=== PATIENT | male | born 1965 | race Caucasian/White ===

== ENCOUNTER 2020-09-19 12:49 | Emergency (ER) | payer OTHER, SELFPAY ==
--- NOTE | ~2020-09-19 | US_ITS ---
EXAMINATION: US VENOUS WITH DOPPLER LOWER EXTREMITY, RIGHT CLINICAL INFORMATION: Swelling and pain, evaluate for DVT. COMPARISON: None TECHNIQUE: Ultrasound of the deep veins is performed from the hip to the calf with compression sonography and color and pulse Doppler assessment. Spectral analysis with color-flow imaging is performed. FINDINGS: There is normal venous compression and respiratory variation and augmented flow. The visualized common femoral vein, superficial femoral vein, profunda femoral vein, popliteal vein, and the trifurcation region shows no evidence of deep venous thrombosis. There is no significant popliteal fossa cyst. If the patient's symptoms persist, follow up ultrasound in 5 days 7 days might be of value to exclude proximal propagation from a non-visualized calf vein. US/US venous duplex LE RT IMPRESSION: No DVT demonstrated in the right lower extremity.
[2020-09-19 12:53] VITALS: BP 166/83; PULSE 93; RESP 18; TEMP 37.1; O2SAT 98; BMI 41.5
[2020-09-19 15:23] LABS: MANUAL DIFF FLAG NO
[2020-09-19 15:26] LABS: Basophils Absolute Auto 0.1 X10*3/uL (0.0-0.2); Basophils Percent Auto 0.7 % (0-2); Eosinophils Absolute Auto 0.4 X10*3/uL (0.0-0.4); Eosinophils Percent Auto 4.6 % (0-4); Hematocrit 41.4 % (42-52); Hemoglobin 14.6 g/dl (14.0-18.0); Imm Gran Abs Auto 0.03 X10*3/uL (0.00-0.03); Imm Gran Pct Auto 0.3 % (0.0-0.4); Lymphocytes Absolute Auto 2.3 X10*3/uL (1.2-4.9); Lymphocytes Percent Auto 25.3 % (20-40); Mean Corpuscular HGB Conc 35.3 g/dl (31.0-36.0); Mean Corpuscular Hemoglobin 32.5 pg (27.0-33.0); Mean Corpuscular Volume 92.2 fL (80-98); Mean Platelet Volume 9.1 fL (9.4-12.4); Monocytes Absolute Auto 0.9 X10*3/uL (0.1-1.2); Monocytes Percent Auto 9.7 % (2-11); Neutrophils Absolute Auto 5.3 X10*3/uL (2.0-8.3); Neutrophils Percent Auto 59.4 % (45-73); Platelet Count 177 X10*3/uL (160-400); Red Blood Count 4.49 X10*6/uL (4.60-5.80); Red Cell Distribution Width 12.1 % (11.0-16.0); White Blood Count 8.9 X10*3/uL (4.8-10.8)
[2020-09-19 15:44] LABS: Anion Gap 18 (12-20); Blood Urea Nitrogen 12 mg/dL (9-16); Calcium 9.5 mg/dL (8.4-10.2); Carbon Dioxide 26 mmol/L (22-29); Chloride 96 mmol/L (96-108); Creatinine Clr Calc Pharmacy 113.6; Estimated Glomerular Filt Rate > 60; Glucose Random 181 mg/dL (60-115); Potassium 3.7 mmol/L (3.3-5.1); Sodium 136 mmol/L (135-145)
--- NOTE | 2020-09-19 17:18 | ED_ITS ---
HPI - General Adult General Chief complaint: Extremity Injury, Lower Stated complaint: CELLULITIS LEG Time Seen by Provider: 09/19/20 17:09 Source: patient Mode of arrival: ambulatory Limitations: no limitations History of Present Illness HPI narrative: 55-year-old male came in for evaluation of right leg swelling and tenderness. Right leg swelling and tenderness for the past 2 weeks, pain and swelling is constant, described as severe 7/10, pain is associated with redness and hotness, but no fever or chills, patient received COVID vaccination (AnovaStorm) 4 weeks ago which followed by rashes on the lower extremities patient started itching the rash is and turn into what he thinks infection of her right lower extremities, patient was seen at an urgent care today and was sent to the ED for further evaluation. Patient declined chest pain or difficulty breathing. Related Data Previous Rx's Medication Instructions Recorded diphenhydramine HCl [Benadryl] 25 mg PO TID PRN #14 cap 09/19/20 doxycycline hyclate 100 mg PO BID #20 tab 09/19/20 Allergies Allergy/AdvReac Type Severity Reaction Status Date / Time cephalexin [From Keflex] AdvReac Rash Verified 09/19/20 15:11 Review of Systems Review of Systems: All other systems are reviewed and are negative Constitutional: Reports as per HPI and Reports no additional constitutional complaints Eyes: Reports as per HPI and Reports no additional eye complaints Reports system reviewed and no additional complaints, except as documented Cardiovascular: Reports as per HPI and Reports no additional cardiovascular complaints Respiratory: Reports as per HPI and Reports no additional respiratory complaints Gastrointestinal: Reports as per HPI and Reports no additional gastrointestinal complaints Genitourinary: Reports no additional female genitourinary complaints Musculoskeletal: Reports no additional musculoskeletal complaints Skin/Breast: Reports system reviewed and no additional complaints, except as docu Psychiatric: Reports no additional psychiatric complaints Endocrine: Reports no additional endocrine complaints Hematologic/Lymphatic: Reports no additional hematologic/lymphatic complaints Allergic/Immunologic: Reports no additional allergic/immunologic complaints Reports system reviewed and no additional complaints, except as documented and Reports Abnormal speech present [facility] Past Medical History Medical History Diabetes HTN (hypertension) Social History Social History Advance Directives: Yes Advance Directives Information Provided: Yes Advance Directives on File: No Physical Exam Vital Signs: Vital Signs: Last Vital Signs Temp 98.7 F 09/19/20 12:53 Pulse 78 09/19/20 18:24 Resp 16 09/19/20 18:24 BP 167/78 H 09/19/20 18:24 Pulse Ox 96 09/19/20 18:24 Body Mass Index 17.2 Vital signs have been reviewed as appeared to be correct. Blood pressure elevated. Heart rate normal. Respiration rate normal. Temperature normal. Oxygen saturation normal. Appearance: Alert. Oriented X3. No acute distress. Head: Normal external exam. Normocephalic. Atraumatic. No Rose signs noted. No raccoon eyes noted Eyes: PERRLA. EOMI. Conjunctiva and sclera normal. Eyelids normal. ENT: TM's Normal. Pharynx normal. Uvula midline. Moist mucous membranes. No trismus noted. No drooling noted. No muffled voice noted. Neck: Normal inspection. Neck supple. FROM. No adenopathy. Thyroid Normal. No meningeal signs. No neck mass noted. CVS: Normal heart rate and rhythm. Heart sound normal. No murmurs noted. Pulses normal throughout. Respiratory: No respiratory distress. Painless inspiration. Breath sounds n ormal. No wheezes/rales/rhonchi noted. Chest nontender. No accessory muscle usage noted or decreased air movement noted. Abdomen: Soft and nontender. Bowel sounds normal in all 4 quadrants. No diste ntion noted. No organomegaly noted. No visible injury noted. Back: No CVA tenderness. Full range of motion noted. Skin: Skin warm and dry. Normal skin color. Normal skin turgor. No rashes/lesions/lacerations noted. Extremities: Right lower extremity swelling, tenderness, diffuse redness from ankle to below knee, +2 pitting edema. Neuro: Oriented X 3. No motor deficit. No sensory deficit. Reflexes normal. Course Course Course Narrative: Assessment and plan. Right lower extremity cellulitis for 2 weeks after itching after receiving COVID vaccination, ultrasound showed no DVT, as discussed with the patient start patient on doxycycline and patient to return in 2 days for wound check. Patient is not meeting criteria for SIRS or sepsis. Lactic acidosis probably secondary to metformin use repeat lactic acid is within normal after hydration. Medical Decision Making Lab Data Lab results reviewed: Yes I reviewed the patient's lab results. Result diagrams: 09/19/20 15:19 09/19/20 15:19 Labs: Lab Results 09/19/20 09/19/20 09/19/20 Range/Units 15:19 15:19 15:19 WBC 8.9 (4.8-10.8) X10*3/uL RBC 4.49 L (4.60-5.80) X10*6/uL Hgb 14.6 (14.0-18.0) g/dl Hct 41.4 L (42-52) % MCV 92.2 (80-98) fL MCH 32.5 (27.0-33.0) pg MCHC 35.3 (31.0-36.0) g/dl RDW 12.1 (11.0-16.0) % Plt Count 177 (160-400) X10*3/uL MPV 9.1 L (9.4-12.4) fL Immature Gran % (Auto) 0.3 (0.0-0.4) % Neut % (Auto) 59.4 (45-73) % Lymph % (Auto) 25.3 (20-40) % Butler % (Auto) 9.7 (2-11) % Eos % (Auto) 4.6 H (0-4) % Baso % (Auto) 0.7 (0-2) % Lymph # (Auto) 2.3 (1.2-4.9) X10*3/uL Butler # (Auto) 0.9 (0.1-1.2) X10*3/uL Eos # (Auto) 0.4 (0.0-0.4) X10*3/uL Baso # (Auto) 0.1 (0.0-0.2) X10*3/uL Abs Immat Gran (auto) 0.03 (0.00-0.03) X10*3/uL Absolute Neuts (auto) 5.3 (2.0-8.3) X10*3/uL Absolute Nucleated RBC 0.000 (0.0-0.012) X10*3/uL Nucleated RBC % (auto) 0.0 (0.0-0.2) /100WBC Hold Blue Top SEE NOTE Sodium 136 (135-145) mmol/L Potassium 3.7 (3.3-5.1) mmol/L Chloride 96 (96-108) mmol/L Carbon Dioxide 26 (22-29) mmol/L Anion Gap 18 (12-20) BUN 12 (9-16) mg/dL Creatinine 0.89 (0.5-1.4) mg/dL Estim Creat Clear Calc 113.6 Estimated GFR > 60 POC Glucose (60-115) mg/dL Random Glucose 181 H (60-115) mg/dL Lactic Acid (0.5-2.0) mmol/L Lactic Acid Fup @ 2Hr (0.5-2.0) mmol/L Calcium 9.5 (8.4-10.2) mg/dL 09/19/20 09/19/20 09/19/20 Range/Units 17:57 20:50 21:11 WBC (4.8-10.8) X10*3/uL RBC (4.60-5.80) X10*6/uL Hgb (14.0-18.0) g/dl Hct (42-52) % MCV (80-98) fL MCH (27.0-33.0) pg MCHC (31.0-36.0) g/dl RDW (11.0-16.0) % Plt Count (160-400) X10*3/uL MPV (9.4-12.4) fL Immature Gran % (Auto) (0.0-0.4) % Neut % (Auto) (45-73) % Lymph % (Auto) (20-40) % Butler % (Auto) (2-11) % Eos % (Auto) (0-4) % Baso % (Auto) (0-2) % Lymph # (Auto) (1.2-4.9) X10*3/uL Butler # (Auto) (0.1-1.2) X10*3/uL Eos # (Auto) (0.0-0.4) X10*3/uL Baso # (Auto) (0.0-0.2) X10*3/uL Abs Immat Gran (auto) (0.00-0.03) X10*3/uL Absolute Neuts (auto) (2.0-8.3) X10*3/uL Absolute Nucleated RBC (0.0-0.012) X10*3/uL Nucleated RBC % (auto) (0.0-0.2) /100WBC Hold Blue Top Sodium (135-145) mmol/L Potassium (3.3-5.1) mmol/L Chloride (96-108) mmol/L Carbon Dioxide (22-29) mmol/L Anion Gap (12-20) BUN (9-16) mg/dL Creatinine (0.5-1.4) mg/dL Estim Creat Clear Calc Estimated GFR POC Glucose 99 (60-115) mg/dL Random Glucose (60-115) mg/dL Lactic Acid 2.6 H* (0.5-2.0) mmol/L Lactic Acid Fup @ 2Hr 1.8 (0.5-2.0) mmol/L Calcium (8.4-10.2) mg/dL Imaging Data Right lower extremity ultrasound: Radiologist's impression: No DVT demonstrated in the right lower extremity. Discharge Plan Discharge Clinical Impression: Cellulitis of right lower extremity Patient Disposition: Home, Self-Care Instructions: Cellulitis (ED) Additional Instructions: Come back to the emergency department in 2 days for wound check or come back if developing any fever or chills or not feeling well. Prescriptions: New doxycycline hyclate 100 mg tablet 100 mg PO BID Qty: 20 RF: 0 diphenhydramine HCl [Benadryl] 25 mg capsule 25 mg PO TID PRN (Reason: itching) Qty: 14 RF: 0 Referrals: Valentín King MD [Primary Care Provider] - 2 days Interventions: ED Discharge Assessment Last Done: 09/19/20 21:41 Discharge Date/Time: 09/19/20 21:42
[2020-09-19 18:08] VITALS: BMI 17.2
[2020-09-19 18:24] VITALS: BP 167/78; PULSE 78; RESP 16; O2SAT 96
--- NOTE | 2020-09-19 18:25 | PC.NURSE ---
@ 1750 pt was resting comfortably, pedal pulses were present but diminished on r both legs edematrous but more so on r with redness and warm extending to knee. currently pt remains comfortable, awaiting ultrasound.
[2020-09-19 18:45] LABS: Lactic Acid 2.6 mmol/L (0.5-2.0)
[2020-09-19] MEDS: 0.9 % Sodium Chloride 1,000 ML 999 ML IVCONT (19:15)
[2020-09-19 20:00] LABS: Reflex Lactate? Lactic Acid Added
[2020-09-19 20:54] LABS: Glucose, Whole Blood 99 mg/dL (60-115)
[2020-09-19 21:35] LABS: ~Lactic Acid-LAB USE ONLY 1.8 mmol/L (0.5-2.0)
== END 2020-09-19 21:42 | disposition home or self-care (01) ==
PROVIDERS: Emergency Provider Emergency Medicine; PCP Internal Medicine
DX: L03.115 Cellulitis of right lower limb (principal); M79.604 Pain in right leg; E11.9 Type 2 diabetes mellitus without complications; I10 Essential (primary) hypertension
CPT/HCPCS: 36415; 80048; 82947; 83605; 85025; 87040; 93971; 96360; 99284

== ENCOUNTER 2021-08-18 13:52 | Outpatient (REF) | payer OTHER, SELFPAY ==
[2021-08-18 18:02] LABS: Creatinine Urine 56.17 mg/dL; Microalbum/Creatinine Ratio Ur 26.7 ug/mg cr
[2021-08-18 18:04] LABS: Estimated Average Glucose 206 mg/dL; Hemoglobin A1c % 8.8 %
[2021-08-18 18:06] LABS: Alanine Aminotransferase 44 U/L (0-40); Albumin Level 4.2 g/dL (3.5-5.0); Alkaline Phosphatase 41 U/L (39-117); Anion Gap 19 (12-20); Aspartate Amino Transferase 33 U/L (5-37); Bilirubin Total 1.3 mg/dL (0.0-1.0); Blood Urea Nitrogen 14 mg/dL (9-16); Calcium 9.6 mg/dL (8.4-10.2); Carbon Dioxide 23 mmol/L (22-29); Chloride 97 mmol/L (96-108); Cholesterol 139 mg/dL; Estimated Glomerular Filt Rate > 60; Glucose Fasting 148 mg/dL (60-99); HDL Cholesterol 32 mg/dL; LDL Cholesterol Calculated 80 mg/dl; Potassium 3.8 mmol/L (3.3-5.1); Sodium 135 mmol/L (135-145); Total Protein 7.8 g/dL (6.5-8.0); Triglycerides 137 mg/dL
== END 2021-08-18 13:53 | disposition home or self-care (01) ==
LOC: HO.MANLDS 13:52
PROVIDERS: PCP Internal Medicine; Visit Provider Internal Medicine
DX: E11.9 Type 2 diabetes mellitus without complications (principal)
CPT/HCPCS: 36415; 80053; 80061; 82043; 83036

== ENCOUNTER 2021-12-27 13:34 | Outpatient (REF) | payer OTHER, SELFPAY ==
[2021-12-27 16:51] LABS: Estimated Average Glucose 114 mg/dL; Hemoglobin A1c % 5.6 %
[2021-12-27 16:52] LABS: Cholesterol 144 mg/dL; HDL Cholesterol 40 mg/dL; LDL Cholesterol Calculated 83 mg/dl; Triglycerides 106 mg/dL
== END 2021-12-27 13:35 | disposition home or self-care (01) ==
LOC: HO.MANLDS 13:34
PROVIDERS: Visit Provider Internal Medicine
DX: E11.9 Type 2 diabetes mellitus without complications (principal)
CPT/HCPCS: 36415; 80061; 83036

== ENCOUNTER 2022-11-21 13:38 | Outpatient (REF) | payer OTHER, SELFPAY ==
[2022-11-21 18:29] LABS: Creatinine Urine 59.38 mg/dL; Microalbum/Creatinine Ratio Ur 31.9 ug/mg cr
[2022-11-21 18:36] LABS: Alanine Aminotransferase 19 U/L (0-40); Albumin Level 4.1 g/dL (3.5-5.0); Alkaline Phosphatase 46 U/L (39-117); Anion Gap 18 (12-20); Aspartate Amino Transferase 15 U/L (5-37); Blood Urea Nitrogen 24 mg/dL (9-16); Calcium 9.5 mg/dL (8.4-10.2); Carbon Dioxide 26 mmol/L (22-29); Chloride 97 mmol/L (96-108); Cholesterol 158 mg/dL; Estimated Glomerular Filt Rate > 60; Glucose Random 202 mg/dL (60-115); HDL Cholesterol 34 mg/dL; LDL Cholesterol Calculated 77 mg/dl; Potassium 5.1 mmol/L (3.3-5.1); Sodium 136 mmol/L (135-145); Total Protein 7.6 g/dL (6.5-8.0); Triglycerides 238 mg/dL
[2022-11-22 05:28] LABS: Estimated Average Glucose 232 mg/dL; Hemoglobin A1c % 9.7 %
== END 2022-11-21 13:39 | disposition home or self-care (01) ==
LOC: HO.MANLDS 13:38
PROVIDERS: Visit Provider Internal Medicine
DX: E11.9 Type 2 diabetes mellitus without complications (principal)
CPT/HCPCS: 36415; 80053; 80061; 82043; 83036

== ENCOUNTER 2023-05-12 11:07 | Outpatient (REF) | payer OTHER, SELFPAY | END 2023-05-12 11:08 | disposition home or self-care (01) | LOC: HO.MANLDS 11:07 | PROVIDERS: Visit Provider Internal Medicine | DX: E11.9 Type 2 diabetes mellitus without complications (principal) | CPT/HCPCS: 36415; 80053; 80061; 83036 ==

== ENCOUNTER 2024-07-08 14:42 | Outpatient (REF) | payer OTHER, SELFPAY ==
--- OUTSIDE RECORDS SUMMARY | 2024-07-08 17:32 | XMS_ITS | Data Portability ---
[facility] Organization [facility] Address [address] [place] [address] Assessment Encounter Date Assessment Date Assessment LastModified by Organization Details LastModified Time 09/24/2021 09/24/2021 [id number] [place] [address] ([facility]) MDM MODERATE MUST MEET 2 OUT OF [...] COVERED Not available 09/24/2021 14:53:34 12/28/2021 12/28/2021 [id number] [place] [address] ([facility]) : MDM LOW MUST MEET 2 OF [...] COVERED Not available 12/28/2021 15:05:54 12/27/2022 12/27/2022 [address] [place] [id number] ([facility]) MDM MODERATE MUST MEET 2 OUT OF [...] COVERED Not available 12/27/2022 16:56:16 05/15/2023 05/15/2023 [id number] [place] [address] ([facility]) MDM MODERATE MUST MEET 2 OUT OF [...] Organization Details Last Modified Time Details Appointments Pre-Op 2024 03:30P M DR BULLOCK Not available Not available Not available Lab HbA1c (hemoglob in A1c), blood 2023 024 [facility], [address] [place] [address], [place], [address], 05/15/2023 14:36:36 CBC 2023 024 [facility], [address] [place] [address], [address], 05/15/2023 14:36:36 PSA, serum or plasma 2023 024 [facility], [address] [facility], [place], [address], 05/23/2023 10:14:38 Referral None recorded. Procedures None recorded. Surgeries None recorded. Imaging None recorded. Medication Orders pregabali n 150 mg capsule 2022 023 [facility]RA[facility][id number], [address] [place], [address], 12/27/2022 16:58:00 pregabali n 75 mg capsule 2021 022 [email or web address], [address] [place] [address], [place] [address], [place], [id number], 04/12/2024 15:35:57 Jardiance 10 mg tablet 2021 022 [email or web address] [facility], [facility] [address], [address], [place], [place], [id number], 12/27/2022 16:51:33 pregabali n 75 mg capsule [address]/Pharmacy #[id number], [address] [place], [address], 04/12/2024 15:35:57 Jardiance 10 mg tablet [address]/Pharmacy #[id number], [address] [place], [address], 12/27/2022 16:51:33 prednison e 10 mg tablet 2020 021 [email or web address] [facility] #[id number], [address] [place], [address], 04/07/2021 16:40:18 Patient TargetsNo targets recorded. Patient Instructions Encounter Date Encounter Id Patient Instructions Last Modified By Organization Details Last Modified Time 09/24/2021 [id number] diabetic foot exam* Not available 09/24/2021 14:55:42 12/27/2022 [id number] body mass index: care instructions Not available [...] Time Polyneuropath y due to diabetes mellitus 90394123 Active 2018 Not Available [facility] 4 07:43:10 Edema of lower extremity 163490342 Active 2018 Not Available [facility] 4 07:43:10 Vertigo 243904901 Active 2021 Not Available [facility] 4 07:43:10 Constipation 54390355 Active 2022 Not Available [facility] 4 07:43:10 Motion sickness 20443401 Active 2022 Not Available [facility] 4 07:43:10 Type 2 diabetes mellitus 05253383 Active 2017 Not Available [facility] 4 07:43:10 Essential hypertension 65568874 Active 2017 Not Available [facility] 4 07:43:10 Esophageal varices 25600370 Active 2017 Not Available [facility] 4 07:43:10 Hyperlipidemi a 07815449 Active 2017 Not Available [facility] 4 07:43:10 Alcoholism 7859560 Active 2017 sober since 2013 Not Available [facility] 4 07:43:10 Notes:Some problems listed i n Documents: #[id number], #[id number] could not be added to this patient's [...] n Not available Not available Not available 10/18/201721188 7 RxNorm Alicia Jeronimo leach [facility] 8 08:02:32 [id number] SARS-CoV- 2 (COVID-19 ) vaccine, mRNA-BNT1 62b2 medicatio n rash severe Not available 10/27/2020 [id number] 30 RxNorm SINGH MULLEN [address] [place], [address], [facility] 14:39:40 Medications Name Sig Start [...] Updated DateTime 1 169.55 cm 42.3 kg/m2 931895. 76 g 98 % 98 % 60 /min 148 mm[Hg] 70 mm[Hg] Katherine Lee [facility] 1 14:29:43 Date Recorded Body height Body mass index (BMI) Body weight Heart rate Oxygen saturation Oxygen saturation in Arterial blood by Pulse oximetry Systolic blood pressure Diastolic blood pressure Provider Name and Address Organization Details Last Updated DateTime 2 169.55 cm 41.7 kg/m2 492747. 39 g 80 /min 98 % 98 % 140 mm[Hg] 78 mm[Hg] Kenia Trujillo [facility] 2 14:20:17 Date Recorded Body height Body mass index (BMI) Body weight Heart rate Oxygen saturation Oxygen saturation in Arterial blood by Pulse oximetry Systolic blood pressure Diastolic blood pressure Provider Name and Address Organization Details Last Updated DateTime 3 167.64 cm 40.2 kg/m2 669168. 5 g 87 /min 96 % 96 % 132 mm[Hg] 70 mm[Hg] Addie Ocasio [facility] 3 16:36:04 Social History Question Answer Notes LastModified by Organizat ion Details LastModified Time Tobacco Smoking Status Former Smoker Not Available [facility] 03/10/2020 03:36:24 What Was The Date Of Your Most Recent Tobacco Screening? 12/27/2022 [email or web address] Information not available 12/27/2022 How Many Years Have You Smoked Tobacco? 18 [id number] Information not available 03/10/2020 Do You Or [...] Time zoster, unspecified formulation 4 completed Valentín Bullock DO [address] [facility], [place], [address], [facility] 06/22/2023 08:32:05 Hep A, adult 9 completed Not Available [facility] 06/09/2023 05:19:34 Tdap 9 completed Not Available [facility] 06/09/2023 05:19:34 Influenza, split virus, quadrivalent, preservative 9 completed Not Available [facility] 06/09/2023 05:19:34 Influenza, split virus, quadrivalent, preservative 0 completed Not Available [facility] 06/09/2023 05:19:34 COVID-19, mRNA, LNP-S, PF, 30 mcg/0.3 mL dose 1 completed Not Available [facility] 06/09/2023 05:19:34 COVID-19, mRNA, LNP-S, PF, 30 mcg/0.3 mL dose 1 completed Not Available [facility] 06/09/2023 05:19:34 Past Encounters Encounter ID Performer Location Encounter Start Date Encounter Closed Date Diagnosis/Indication Diagnosis SNOMED-CT Code Diagnosis ICD10 Code Diagnosis Note [id number] August GUILLE Ross [facility] Internal Medicine [address] [facility],[place] [address] 10/18/2017 13:37:06 10/18/2017 14:38:06 Type 2 diabetes mellitus 27441093 E11.65 has improved will continue to work on diet and exercise encourage weight loss oscar delgado on diet 10-15 minutes Hyperlipidemia 16565828 E78.2 will continue to work on diet and exercise encourage weight loss Essential hypertension 18880642 I10 not well controlled will increase lisinopril from 30 mg to 40 mg Neuropathy due to diabetes mellitus 329232880 E11.40 left great toe tingling chronicall y x years declines gabapentin at this time careful foot care improve diabetes control counsellin g on foot protection /preventio n of diabetic ulcers approx 5 minutes [id number] August [facility] Internal Medicine [address] [facility] [address],[place] [address] 01/17/2018 13:54:51 01/17/2018 14:30:56 Type 2 diabetes mellitus 42291798 E11.65 stable, still not quite at goal at 7.9 diet needs improvemen t Hyperlipidemia 22277317 E78.2 well controlled on pravastati n Essential hypertension 57794599 I10 not well controlled increase cardio exercise Neuropathy due to diabetes mellitus 022665922 E11.40 left great toe tingling chronicall y x years declines gabapentin at this time careful foot care improve diabetes control counsellin g on foot protection /preventio n of diabetic ulcers approx 5 minutes [id number] August [facility] Internal Medicine [address] [facility] [address],[place] [address] 04/18/2018 13:29:01 04/18/2018 15:43:59 Type 2 diabetes mellitus 30319170 E11.65 not well controlled had tried trulicity in the past, but didn't really seem to help will try glyburide encouraged better diet and exercise regimen make sure to check bs ever morning Hyperlipidemia 73636259 E78.2 well controlled on pravastati n Essential hypertension 41768729 I10 stable increase cardio exercise Neuropathy due to diabetes mellitus 731877379 E11.40 left great toe tingling chronicall y x years declines gabapentin at this time careful foot care improve diabetes control counsellin sandy on foot protection /preventio n of diabetic ulcers approx 5 minutes [id number] Marie Jacobo NP, S [facility] Internal Medicine [address] [facility] [address],[place] [address] 07/25/2018 14:21:49 07/25/2018 16:17:43 Type 2 diabetes mellitus 25213001 E11.9 much improved, cont. glyburide and walking Hyperlipidemia 86446322 E78.2 ldl 95 Essential hypertension 22318834 I10 stable Alcoholism 7174173 F10.2 0 sober X 5 years w/AA [id number] August [facility] Internal Medicine [address] [facility] [address],[place] [address] 11/13/2018 13:49:24 11/13/2018 14:35:44 Type 2 diabetes mellitus 45895756 E11.65 improved with glyburide as of july, will recheck today Hyperlipidemia 45814845 E78.2 ldl close to goal with pravastati n work on diet to work towards goal diet counsellin g Essential hypertension 31921880 I10 somewhat elevated, seems to correlate with increase in weight wants to work on weight reduction diet counsellin g Neuropathy due to diabetes mellitus 980726079 E11.40 left great toe tingling chronicall y x years - no change declines gabapentin at this time careful foot care improve diabetes control August GUILLE Ross [facility] [address] [facility] [place] [address] 02/12/2019 14:09:53 02/12/2019 15:28:17 Type 2 diabetes mellitus 14807200 E11.65 a1c 6.5 - well controlled will get dm eye exam where his goes nephropath y screening 02/11/19 - normal Hyperlipidemia 97372041 E78.2 LDL close but has not improved in past year will increase pravastati n work on diet to work towards goal diet counsellin g Essential hypertension 01916345 I10 will start metoprolol discussed possible adr/ddi will monitor these possibilit ies closely Neuropathy due to diabetes mellitus 942900424 E11.40 left great toe tingling chronicall y x years - no change declines gabapentin at this time careful foot care improve diabetes control Edema of l ower extremity 917157534 R60.0 compressio n stockings for travel keep moving while on flights Body mass index 40+ - severely obese 880493367 Z68.41 stressed importance of weight loss Screening for malignant neoplasm of colon 050221036 Z12.11 [id number] Valentín Bullock DO [facility] [address] [facility],[place] [address] 01/03/2020 14:29:28 01/03/2020 15:30:38 Type 2 diabetes mellitus 52619015 E11.9 doing amazing a1c is 6.2 Essential hypertension 38590034 I10 ok no cp no cardiac sx 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 62080565 E11.42 seems about stable Edema of l ower extremity 648811957 R60.0 has noted fungal infect of feet tinea pedis will use an antifungal spray powder Active or passive immunization 302488610 Z23 [id number] SINGH MULLEN [facility] Internal Medicine [address] [facility], [place] [address] 10/13/2020 13:55:24 10/13/2020 14:17:53 Cellulitis of right lower limb 5355290568 5525408 L03.115 will set up with longer course of bactrim and fu in a week or two before patient leaves on vacation if needed will do a rocephin injection 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 29368692 E11.42 stable Body mass index 40+ - severely obese 815039214 Z68.41 discussed diet and exercise Alcoholism 2786627 F10.2 1 stable [id number] SINGH MULLEN [facility] Internal Medicine [address] [facility],[place], [place] [address] 10/27/2020 14:24:07 10/27/2020 15:01:50 Cellulitis 550870392 L03.90 will fu with pred taperlooks more like a rash from reaction to the COVID vaccine todayhas spread up his leg to his stomach to his left arm will start on predtold patient to be very careful with his sugar given he is a Type 2 diabetic[place] [id number] Valentín Bullock DO [facility] Internal Medicine [address] [facility], [place] [address] 09/24/2021 14:04:03 09/24/2021 15:03:08 Type 2 diabetes mellitus 49175130 E11.9 doing amazing a1c is 6.2 Essential hypertension 55669277 I10 ok no cp no cardiac sx 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 15462095 E11.42 seems to have become a real issue now Body mass index 40+ - severely obese 652219746 Z68.41 Alcoholism 8742004 F10.2 1 [id number] Valentín Bullock DO [facility] Internal Medicine [address] [facility],[place] [address] 12/28/2021 08:03:41 12/28/2021 15:40:02 Essential hypertension 56603878 I10 ok no cp no cardiac sx Hyperlipidemia 75310299 E78.2 LDL 83 !!!! 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 85603387 E11.42 seems to have gotten much better with lowered glucose Type 2 ruthie betes mellitus 75854213 E11.9 doing amazing a1c is now down to 5.6!!!!! was down to 6.2 [id number] Valentín Bullock, [facility] Internal Medicine [address] [facility],[place] [address] 12/27/2022 16:24:46 12/28/2022 08:49:33 Essential hypertension 84437576 I10 ok no cp no cardiac sx Hyperlipidemia 37084181 E78.2 LDL 83 !!!! Type 2 ruthie betes mellitus 32892846 E11.9 we will go back to the januvia once a day and cont the jardiance as his a1c went up to 9.7 from the 5's when on januvia even with wgt loss jardiance didnt help 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 89931847 E11.42 seems to have gotten much better with lowered glucosedoi ng much better with the lyrica we will increase to 150mg bid Body mass index 40+ - severely obese 237448853 Z68.41 [id number] Valentín Bullock [facility] Internal Medicine [address] [facility],[place] [address] 05/15/2023 08:25:48 05/16/2023 08:06:20 Type 2 diabetes mellitus 25052349 E11.42 pt is doing amazing a1c at 5.8 and is feeling okmeds working goodif next lab shows same will beging tapering off meds Essential hypertension 82494861 I10 ok no cp no cardiac sx Hyperlipidemia 46138929 E78.2 LDL 53 !!!! Body mass index 40+ - severely obese 925106470 Z68.41 much better Health Concerns Section Related Observation LastModified by Organization Nikia vega LastModified Time None Recorded Concern Status LastModified by Organization Details LastModified Time None Recorded Advance Directives Directive None Recorded Payers Encounter Date Sequence Insurance Name Policy Number Policy Morton Covered Member ID Morton Member ID Guarantor Name 10/27/2020 1 [facility] [id number] Rusty Goran [id number] Rusty Corrales Goran 09/24/2021 1 [facility] [id number] Rusty Goran [id number] Rusty Corrales Goran 12/28/2021 1 [facility] [id number] Rusty Goran [id number] Rusty Savanna Goran 12/27/2022 1 [facility] [id number] Rusty Goran [id number] Rusty Corrales Groan 05/15/2023 1 [facility] [id number] Rusty Zimmer [id number] Rusty Savanna Goran Notes Date Note Type Note Provider Name a nd Address Organization Details Recorded Time 1 text/html fu cellulitis patient finished both courses [...] plane fu after his trip SINGH MULLEN [address] [place], [address], [facility] Internal Medicine 10/27/2020 14:46:45 2 text/html patient is evaluated via tele/video assessment per patient consentduring current pandemicPatient is a well-appearing 56 __ year old male/female who presents for followup on type 2 diabetes.a1c is 5.6 Valentín Bullock DO [address] [place], [address], [facility] Internal Medicine 12/28/2021 17:09:30 4 text/html patient is evaluated via tele/video assessment per patient consentduring current pandemic doing ok has a URI right now but otherwise has been feelingno major issues a1c is now 5.8 was 9.7 has not checked his bp Valentín Bullock DO [address] [facility], [place], [address], [facility] 05/15/2023 14:36:17
[2024-07-08 17:49] LABS: MANUAL DIFF FLAG NO
[2024-07-08 17:50] LABS: Basophils Absolute Auto 0.1 X10*3/uL (0.0-0.2); Basophils Percent Auto 1.3 % (0-2); Eosinophils Absolute Auto 0.5 X10*3/uL (0.0-0.4); Eosinophils Percent Auto 7.3 % (0-4); Hematocrit 44.3 % (42.0-52.0); Hemoglobin 15.5 g/dl (14.0-18.0); Imm Gran Abs Auto 0.01 X10*3/uL (0.00-0.03); Imm Gran Pct Auto 0.1 % (0.0-0.4); Lymphocytes Absolute Auto 2.2 X10*3/uL (1.2-4.9); Lymphocytes Percent Auto 32.1 % (20-40); Mean Corpuscular Volume 91.5 fL (80.0-98.0); Mean Platelet Volume 9.9 fL (9.4-12.4); Monocytes Absolute Auto 0.6 X10*3/uL (0.1-1.2); Monocytes Percent Auto 8.2 % (2-11); Neutrophils Absolute Auto 3.4 x10*3/uL (2.0-8.3); Platelet Count 148 X10*3/uL (160-400); Red Blood Count 4.84 X10*6/uL (4.60-5.80); Red Cell Distribution Width 12.7 % (11.0-16.0); White Blood Count 6.7 X10*3/uL (4.8-10.8)
[2024-07-08 18:05] LABS: Potassium 3.9 mmol/L (3.3-5.1); Sodium 138 mmol/L (135-145)
[2024-07-08 18:06] LABS: Alanine Aminotransferase 47 U/L (0-40); Albumin Level 4.2 g/dL (3.5-5.0); Alkaline Phosphatase 45 U/L (39-117); Anion Gap 14 (12-20); Aspartate Amino Transferase 41 U/L (5-37); Bilirubin Total 1.1 mg/dL (0.0-1.0); Blood Urea Nitrogen 16 mg/dL (9-16); Calcium 8.9 mg/dL (8.4-10.2); Carbon Dioxide 27 mmol/L (22-29); Chloride 101 mmol/L (96-108); Cholesterol 153 mg/dL (<200); Estimated Glomerular Filt Rate > 60; Glucose Random 152 mg/dL (60-115); HDL Cholesterol 34 mg/dL (>40); LDL Cholesterol Calculated 80 mg/dL (<100); Total Protein 8.7 g/dL (6.5-8.0); Triglycerides 199 mg/dL (<150)
[2024-07-08 18:28] LABS: Prostate Specific Antigen 0.13 ng/mL (<0.05-4.0)
[2024-07-09 07:25] LABS: Estimated Average Glucose 174 mg/dL; Hemoglobin A1C 242.5278 umol/L; Hemoglobin A1c % 7.7 % (<6.0); Total Hemoglobin (HGBA1C) 3966.3011 umol/L
== END 2024-07-08 14:43 | disposition home or self-care (01) ==
LOC: HO.MANLDS 14:42
PROVIDERS: Visit Provider Physician Assistant
DX: E11.9 Type 2 diabetes mellitus without complications (principal); Z12.5 Encounter for screening for malignant neoplasm of prostate
CPT/HCPCS: 36415; 80053; 80061; 83036; 84153; 85025

== ENCOUNTER 2024-07-22 10:27 | Day surgery (SDC) | payer OTHER, SELFPAY ==
--- OUTSIDE RECORDS SUMMARY | 2024-04-17 23:11 | XMS_ITS | Data Portability ---
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 MUST MEET 2 OUT OF 3 ELEMENTS: PROBLEMS, DATA OR RISK ELEMENT 1: PROBLEMS ADDRESSED 1 OR MORE CHRONIC ILLNESS WITH EXACERBATION OR 2 OR MORE STABLE CHRONIC ILLNESSES OR 1 UNDIAGNOSED NEW PROBLEM OR 1 ACUTE ILLNESS W/SYMPTOMS OR 1 ACUTE COMPLICATED INJURY ELEMENT 2: DATA MUST MEET 1 OF 3 CATEGORIES CATEGORY 1: REVIEW OF PRIOR EXTERNAL NOTES, REVIEW OF RESULTS, ORDERING OF EACH TEST, ASSESSMENT REQUIRING INDEPENDENT HISTORIAN OR CATEGORY 2: INDEPENDENT INTERPRETATION OF TESTS BY ANOTHER PHYSICIAN OR SPECIALIST OR CATEGORY 3: DISCUSSION OF MGT OR TEST INTERPRETATION W/EXTERNAL PHYSICIAN OR SPECIALIST ELEMENT 3: RISK RISK OF COMPLICATIONS AND/OR MORBIDITY OR MORTALITY OF PATIENT MANAGEMENT PROVIDER MUST THOROUGHLY DOCUMENT EACH ELEMENT THAT IS COVERED Not available 09/24/2021 14:53:34 12/28/2021 12/28/2021 [id number] [place] [id number]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 REVIEW OF PRIOR EXTERNAL NOTES/RESULTS, ORDERING OF TEST(S) CATEGORY 2. 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 MUST MEET 2 OUT OF 3 ELEMENTS: PROBLEMS, DATA OR RISK ELEMENT 1: PROBLEMS ADDRESSED 1 OR MORE CHRONIC ILLNESS WITH EXACERBATION OR 2 OR MORE STABLE CHRONIC ILLNESSES OR 1 UNDIAGNOSED NEW PROBLEM OR 1 ACUTE ILLNESS W/SYMPTOMS OR 1 ACUTE COMPLICATED INJURY ELEMENT 2: DATA MUST MEET 1 OF 3 CATEGORIES CATEGORY 1: REVIEW OF PRIOR EXTERNAL NOTES, REVIEW OF RESULTS, ORDERING OF EACH TEST, ASSESSMENT REQUIRING INDEPENDENT HISTORIAN OR CATEGORY 2: INDEPENDENT INTERPRETATION OF TESTS BY ANOTHER PHYSICIAN OR SPECIALIST OR CATEGORY 3: DISCUSSION OF MGT OR TEST INTERPRETATION W/EXTERNAL PHYSICIAN OR SPECIALIST ELEMENT 3: RISK RISK OF COMPLICATIONS AND/OR MORBIDITY OR MORTALITY OF PATIENT MANAGEMENT PROVIDER MUST THOROUGHLY DOCUMENT EACH ELEMENT THAT IS COVERED Not available 12/27/2022 16:56:16 05/15/2023 05/15/2023 [id number] [place] [id number]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 MUST MEET 2 OUT OF 3 ELEMENTS: PROBLEMS, DATA OR RISK ELEMENT 1: PROBLEMS ADDRESSED 1 OR MORE CHRONIC ILLNESS WITH EXACERBATION OR 2 OR MORE STABLE CHRONIC ILLNESSES OR 1 UNDIAGNOSED NEW PROBLEM OR 1 ACUTE ILLNESS W/SYMPTOMS OR 1 ACUTE COMPLICATED INJURY ELEMENT 2: DATA MUST MEET 1 OF 3 CATEGORIES CATEGORY 1: REVIEW OF PRIOR EXTERNAL NOTES, REVIEW OF RESULTS, ORDERING OF EACH TEST, ASSESSMENT REQUIRING INDEPENDENT HISTORIAN OR CATEGORY 2: INDEPENDENT INTERPRETATION OF TESTS BY ANOTHER PHYSICIAN OR SPECIALIST OR CATEGORY 3: DISCUSSION OF MGT OR TEST INTERPRETATION W/EXTERNAL PHYSICIAN OR SPECIALIST ELEMENT 3: RISK RISK OF COMPLICATIONS AND/OR MORBIDITY OR MORTALITY OF PATIENT MANAGEMENT PROVIDER MUST THOROUGHLY DOCUMENT EACH ELEMENT THAT IS COVERED Not available 05/15/2023 14:33:55 Plan of Treatment Reminders Order Date Submit Date Provider Last Modified By Organization Details Last Modified Time Details Appointments FOLLOW UP 15 2024 01:45P M DR BULLOCK Not available Not available Not available Lab HbA1c (hemoglob in A1c), blood 2023 024 [facility], [address] [place] [address], [place], [address], 05/15/2023 14:36:36 CBC 2023 024 [facility], [address] [place] [address], [address], 05/15/2023 14:36:36 PSA, serum or plasma 2023 024 [facility], [address] [place] [address], [place], [address], 05/23/2023 10:14:38 Referral None recorded. Procedures None recorded. Surgeries None recorded. Imaging None recorded. Medication Orders prednison e 10 mg tablet 2020 021 jvanasse [facility] #[id number], [address] [place], [address], 04/07/2021 16:40:18 pregabali n 75 mg capsule [address]/Pharmacy #[id number], [address] [place], [address], 04/12/2024 15:35:57 Jardiance 10 mg tablet [address]/Pharmacy #[id number], [address] [place], [address], 12/27/2022 16:51:33 pregabali n 75 mg capsule 2021 022 [facility], [address], [address], [place], [place], [id number], 04/12/2024 15:35:57 Jardiance 10 mg tablet 2021 022 [facility], [address], [address], [place], [place], [id number], 12/27/2022 16:51:33 pregabali n 150 mg capsule 2022 023 [id number], [address] [place] [address], [address], 12/27/2022 16:58:00 Patient TargetsNo targets recorded. Patient Instructions Encounter Date Encounter Id Patient Instructions Last Modified By Organization Details Last Modified Time 09/24/2021 [id number] diabetic foot exam* Not available 09/24/2021 14:55:42 12/27/2022 [id number] body mass index: care instructions Not available 12/27/2022 16:57:56 learning about healthy weight Not available 12/27/2022 16:57:56 high cholesterol : care instructions Not available 12/27/2022 16:57:56 Reason for Referral None Reported. Results Created Date Observation Date Name Description Value Unit Range Abnormal Flag Note LastModifiedBy Organization Detail LastModifiedTime Result Notes None recorded. 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 07040576 Active 2018 Not Available [facility] 4 07:43:10 Edema of lower extremity 968724185 Active 2018 Not Available [facility] 4 07:43:10 Vertigo 254316212 Active 2021 Not Available [facility] 4 07:43:10 Constipation 25871458 Active 2022 Not Available [facility] 4 07:43:10 Motion sickness 40067357 Active 2022 Not Available [facility] 4 07:43:10 Type 2 diabetes mellitus 03989873 Active 2017 Not Available [facility] 4 07:43:10 Essential hypertension 61660391 Active 2017 Not Available [facility] 4 07:43:10 Esophageal varices 25889688 Active 2017 Not Available [facility] 4 07:43:10 Hyperlipidemi a 19419937 Active 2017 Not Available [facility] 4 07:43:10 Alcoholism 1663120 Active 2017 sober since 2013 Not Available [facility] 4 07:43:10 Notes:Some problems listed i n Documents: #[id number], #[id number] could not be added to this patient's chart. Please review these documents and add these problems to the patient's chart manually as needed. Problem Notes None recorded. Medical Equipment None Reported. Allergies Allergen ID Allergen Name Allergen Category Reaction Reaction Severity Criticality Documentation Date Start Date Code Code System Note Provider Name and Address Organization Details Recorded Time 1611 Keflex medicatio n Not available Not available Not available 10/18/201715518 7 RxNorm Alicia Decker haylee [facility] 8 08:02:32 4595 SARS-CoV- 2 (COVID-19 ) vaccine, mRNA-BNT1 62b2 medicatio n rash severe Not available 10/27/2020 06849 30 RxNorm SINGH MULLEN [address] [place], [address], [facility] 14:39:40 Medications Name Sig Start Date Stop Date Status Note LastModified by Organization Details LastModified Time prednisone 10 mg tablet 5 tabs x 3 days4 tabs x 3 days3 tabs x 3 days2 tabs x 3 days1 tabs x 3 days1/2 tabs x 3 days 04/07 completed Not Available Not Available Not Available lisinopril 20 mg-hydrochl orothiazide 12.5 mg tablet TAKE 2 TABLETS BY MOUTH DAILY 2023 active Not Available Not Available Not Avai lable glyburide 5 mg tablet TAKE 2 TABLETS BY MOUTH DAILY 2023 active Not Available Not Available Not Avai lable pravastatin 40 mg tablet TAKE 1 TABLET BY MOUTH EVERY DAY 2023 active Not Available Not Available Not Avai lable ondansetron HCl 8 mg tablet TAKE 1 TABLET BY MOUTH TWICE A DAY NEEDED FOR 14 DAYS active Not Available Not Available No t Available atovaquone 250 mg-proguani l 100 mg tablet 11/13 completed Not Available Not Available Not Available lisinopril 20 mg tablet Take 1 tablet every day by oral route. 01/17 completed Not Available Not Available Not Available sulfamethox azole 800 mg-trimetho prim 160 mg tablet Take 1 tablet every 12 hours by oral route for 10 days. 10/27 completed Not Available Not Available Not Available pravastatin 10 mg tablet take 1 tablet by mouth once a day 01/17 completed Not Available Not Available Not Available amlodipine 10 mg tablet TAKE 1 TABLET BY MOUTH DAILY 2023 active Not Available Not Available Not Avai lable metformin 1,000 mg tablet TAKE 1 TABLET BY MOUTH TWICE DAILY 2023 active Not Available Not Available Not Avai lable lisinopril 30 mg tablet 01/17 completed Not Available Not Available Not Available pravastatin 20 mg tablet TAKE 1 TABLET BY MOUTH EVERY DAY 02/12 completed Not Available Not Available Not Available metoprolol succinate ER 25 mg tablet,exte nded release 24 hr TAKE 1 TABLET BY MOUTH ONCE DAILY 2023 active Not Available Not Available Not Avai lable Viagra 100 mg tablet Take 1 tablet as needed by oral route. active Not Available Not Available No t Available scopolamine 1 mg over 3 days transdermal patch APPLY 1 PATCH EVERY 72 HOURS BY TRANSDERM AL ROUTE FOR 14 DAYS. active Not Available Not Available No t Available lisinopril 40 mg tablet Take 1 tablet every day by oral route for 90 days. 04/18 completed Not Available Not Available Not Available doxycycline hyclate 100 mg tablet 10/13 completed Not Available Not Available Not Available azithromyci n 500 mg tablet 11/13 completed Not Available Not Available Not Available pregabalin 75 mg capsule TAKE 1 CAPSULE BY MOUTH TWICE A DAY 04/12 completed Not Available Not Available Not Available pregabalin 150 mg capsule TAKE 1 CAPSULE BY MOUTH TWICE A DAY 2023 active Not Available Not Available Not Avai lable amlodipine Take one tablet once a day 01/17 completed Not Available Not Available Not Available Januvia 100 mg tablet TAKE 1 TABLET BY MOUTH DAILY 2023 active Not Available Not Available Not Avai lable Januvia Take one tablet once a day 01/17 completed Not Available Not Available Not Available Jardiance 10 mg tablet TAKE 1 TABLET BY MOUTH EVERY DAY FOR 30 DAYS active Not Available Not Available No t Available Trulicity 0.75 mg/0.5 mL subcutaneou s pen injector 01/17 completed Not Available Not Available Not Available Fluarix Quad (PF) 60 mcg (15 mcg x 4)/0.5 mL IM syringe 07/25 completed Not Available Not Available Not Available Fluzone Quad (PF) 60 mcg (15 mcg x 4)/0.5 mL IM syringe 01/02 completed Not Available Not Available Not Available ID NOW COVID-19 Test Kit TEST DIRECTED 04/07 completed Not Available Not Available Not Available Afluria Qd (36 mos up)(PF)60 mcg (15 mcg x4)/0.5 mL IM syringe 10/13 completed Not Available Not Available Not Available Vitals Date Recorded Body height Body mass index (BMI) Body weight Oxygen saturation Oxygen saturation in Arterial blood by Pulse oximetry Heart rate Systolic blood pressure Diastolic blood pressure Provider Name and Address Organization Details Last Updated DateTime 1 169.55 cm 42.3 kg/m2 850229. 76 g 98 % 98 % 60 /min 148 mm[Hg] 70 mm[Hg] Katherine Lee [facility] 1 14:29:43 Date Recorded Body height Body mass index (BMI) Body weight Heart rate Oxygen saturation Oxygen saturation in Arterial blood by Pulse oximetry Systolic blood pressure Diastolic blood pressure Provider Name and Address Organization Details Last Updated DateTime 2 169.55 cm 41.7 kg/m2 589924. 39 g 80 /min 98 % 98 % 140 mm[Hg] 78 mm[Hg] Kenia Trujillo [facility] 2 14:20:17 Date Recorded Body height Body mass index (BMI) Body weight Heart rate Oxygen saturation Oxygen saturation in Arterial blood by Pulse oximetry Systolic blood pressure Diastolic blood pressure Provider Name and Address Organization Details Last Updated DateTime 3 167.64 cm 40.2 kg/m2 450514. 5 g 87 /min 96 % 96 % 132 mm[Hg] 70 mm[Hg] Addie Ocasio [facility] 3 16:36:04 Social History Question Answer Notes LastModified by Organizat ion Details LastModified Time Tobacco Smoking Status Former Smoker Not Available [facility] 03/10/2020 03:36:24 What Was The Date Of Your Most Recent Tobacco Screening? 12/27/2022 [email or web address] Information not available 12/27/2022 How Many Years Have You Smoked Tobacco? 18 [id number] Information not available 03/10/2020 Do You Or Have You Ever Used Any Other Forms Of Tobacco Or Nicotine? No [email or web address] Information not available 09/24/2021 Sex: Unknown Functional Status None recorded. Mental Status None recorded. Family History Nothing Reported. Medical History No medical history recorded. Immunizations Vaccine Type Date Status Note Provider Nam e and Address Organization Details Recorded Time zoster, unspecified formulation 4 completed Valentín Bullock, [address] [facility],[place], [address], [facility] 06/22/2023 08:32:05 Hep A, adult 9 completed Not Available [facility], [facility] 06/09/2023 05:19:34 Tdap 9 completed Not Available [facility], [facility] 06/09/2023 05:19:34 Influenza, split virus, quadrivalent, preservative 9 completed Not Available [facility], [facility] 06/09/2023 05:19:34 Influenza, split virus, quadrivalent, preservative 0 completed Not Available [facility], [facility] 06/09/2023 05:19:34 COVID-19, mRNA, LNP-S, PF, 30 mcg/0.3 mL dose 1 completed Not Available [facility], [facility] 06/09/2023 05:19:34 COVID-19, mRNA, LNP-S, PF, 30 mcg/0.3 mL dose 1 completed Not Available [facility], [facility] 06/09/2023 05:19:34 Past Encounters Encounter ID Performer Location Encounter Start Date Encounter Closed Date Diagnosis/Indication Diagnosis SNOMED-CT Code Diagnosis ICD10 Code [id number] August GUILLE Ross [address] [address] 10/18/2017 13:37:06 10/18/2017 14:38:06 Type 2 diabetes mellitus 48813905 E11.65 Hyperlipidemia 72357282 E78.2 Essential hypertension 83368928 I10 Neuropathy due to diabetes mellitus 323710132 E11.40 [id number] Leti GUILLE Ross [address] [address] 01/17/2018 13:54:51 01/17/2018 14:30:56 Type 2 diabetes mellitus 77739118 E11.65 Hyperlipidemia 18050460 E78.2 Essential hypertension 54605757 I10 Neuropathy due to diabetes mellitus 574618422 E11.40 [id number] Leti Cody, [address] [address] 04/18/2018 13:29:01 04/18/2018 15:43:59 Type 2 diabetes mellitus 96363970 E11.65 Hyperlipidemia 93410739 E78.2 Essential hypertension 06606726 I10 Neuropathy due to diabetes mellitus 794590944 E11.40 [id number] Marie Jacobo NP, S [address] [address] 07/25/2018 14:21:49 07/25/2018 16:17:43 Type 2 diabetes mellitus 79608552 E11.9 Hyperlipidemia 28875382 E78.2 Essential hypertension 77454840 I10 Alcoholism 5321168 F10.2 0 [id number] [address] [address] 11/13/2018 13:49:24 11/13/2018 14:35:44 Type 2 diabetes mellitus 32814840 E11.65 Hyperlipidemia 43925298 E78.2 Essential hypertension 30592098 I10 Neuropathy due to diabetes mellitus 654175986 E11.40 [id number] Leti Cody, [address] [address] 02/12/2019 14:09:53 02/12/2019 15:28:17 Type 2 diabetes mellitus 99388727 E11.65 Hyperlipidemia 18341928 E78.2 Essential hypertension 52229918 I10 Neuropathy due to diabetes mellitus 652674832 E11.40 Edema of l ower extremity 030225463 R60.0 Body mass index 40+ - severely obese 578690644 Z68.41 Screening for malignant neoplasm of colon 812514952 Z12.11 [id number] Valentín Bullock DO [address] [address] 01/03/2020 14:29:28 01/03/2020 15:30:38 Type 2 diabetes mellitus 05979742 E11.9 Essential hypertension 82904214 I10 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 85139055 E11.42 Edema of l ower extremity 436260649 R60.0 Active or passive immunization 801862796 Z23 [id number] SINGH MULLEN [address] [address] 10/13/2020 13:55:24 10/13/2020 14:17:53 Cellulitis of right lower limb 2877624013 3158077 L03.115 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 44957524 E11.42 Body mass index 40+ - severely obese 805446847 Z68.41 Alcoholism 1324113 F10.2 1 [id number] SINGH MULLEN [address] [address] 10/27/2020 14:24:07 10/27/2020 15:01:50 Cellulitis 472411792 L03.90 [id number] Valentín DeePatrice Bullock [address] [address] 09/24/2021 14:04:03 09/24/2021 15:03:08 Type 2 diabetes mellitus 37192147 E11.9 Essential hypertension 03560324 I10 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 76541789 E11.42 Body mass index 40+ - severely obese 940499142 Z68.41 Alcoholism 6790351 F10.2 1 [id number] Valentín DeePatrice Bullock [address] [address] 12/28/2021 08:03:41 12/28/2021 15:40:02 Essential hypertension 73562914 I10 Hyperlipidemia 12046652 E78.2 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 60741465 E11.42 Type 2 ruthie betes mellitus 77579504 E11.9 [id number] Valentín Mary Christine [address] [address] 12/27/2022 16:24:46 12/28/2022 08:49:33 Essential hypertension 97305495 I10 Hyperlipidemia 41614308 E78.2 Type 2 ruthie betes mellitus 01348549 E11.9 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 25482600 E11.42 Body mass index 40+ - severely obese 033171048 Z68.41 [id number] DO BELEM [address] [place] [address] 05/15/2023 08:25:48 05/16/2023 08:06:20 Type 2 diabetes mellitus 53562158 E11.42 Essential hypertension 54654778 I10 Hyperlipidemia 97991327 E78.2 Body mass index 40+ - severely obese 852314735 Z68.41 Health Concerns Section Related Observation LastModified by Organization Detai ls LastModified Time None Recorded Concern Status LastModified by Organization Details LastModified Time None Recorded Advance Directives Directive None Recorded Payers Encounter Date Sequence Insurance Name Policy Number Policy Morton Covered Member ID Morton Member ID Guarantor Name 10/27/2020 1 [facility] [id number] Rusty Zimmer [id number] Rusty Zimmer 09/24/2021 1 [facility] [id number] Rusty Zimmer [id number] Rusty Zimmer 12/28/2021 1 [facility] [id number] Rusty Goran [id number] Rusty Zimmer 12/27/2022 1 [facility] [id number] Rusty Goran [id number] Rusty Zimmer 05/15/2023 1 [facility] [id number] Rusty Zimmer [id number] Rusty Zimmer Notes Date Note Type Note Provider Name and Address Organization Details Recorded Time 10/27/2020 text/html fu cellulitis patient finished both courses of bactrim the cellulitis looks more like a rash, possible from the vaccine, spreading up his leg with petechiae and pruritis up the right leg, to his stomach and down his left arm the patient denies any other symptoms including fever, chills, muscles aches, dysphagia, sob the patient goes to [place] tomorrow will start on pred taper and told him to be very careful with his sugar wear compression stockings on the plane fu after his trip SINGH MULLEN [address] [place], [address], [facility] 10/27/2020 14:46:45 12/28/2021 text/html patient is evalu ated via tele/video assessment per patient consentduring current pandemicPatient is a well-appearing 56 __ year old male/female who presents for followup on type 2 diabetes.a1c is 5.6 Valentín Bullock DO [address], [place], [address], [facility] 12/28/2021 17:09:30 05/15/2023 text/html patient is evalu ated via tele/video assessment per patient consentduring current pandemic doing ok has a URI right now but otherwise has been feelingno major issues a1c is now 5.8 was 9.7 has not checked his bp Valentín Bullock DO [address], [place], [address], [facility] 05/15/2023 14:36:17
[2024-07-16 15:26] VITALS: BMI 44.3
[2024-07-18 10:21] VITALS: BMI 44.3
--- NOTE | 2024-07-18 14:58 | P.CONAN_ITS ---
Documented by User: Patricia Ames NP 07/19/24 12:19 HPI - Anesthesia Eval Consult details Narrative: 58yo M for Left Cataract Extraction IOL Insertion No previous cataract on record ETOH dependance with varices. Per clearance note: JVP < 6, Kussmaul's sign absent Anesthesia Pre-Procedure Meds Is the patient on any of the following meds?: GLP1/DPP4 PMFSH Past Medical History Medical History Motion sickness Vertigo Esophageal varices Polyneuropathy Alcohol dependence in remission Hyperlipidemia Diabetes HTN (hypertension) Surgical History Surgical History (Updated 07/18/24 @ 10:16 by Marisela Aranda RN) Surgical history unknown Social History Social History Patient Tobacco Use Status: Former Tobacco user Tobacco use type: Cigarette [employer] Healthcare Practices: none Advance Directives on File: No Meds Allergies Allergy/AdvReac Type Severity Reaction Status Date / Time cephalexin [From Keflex] AdvReac Rash Verified 07/22/24 12:32 Home Medications ?Medication ?Instructions ?Recorded ?Confirmed ?Last Taken ?Type amlodipine 10 mg tablet 10 mg PO DAILY 07/18/24 07/18/24 07/22/24 08:30 History glyburide 5 mg tablet 10 mg PO DAILY 07/18/24 07/18/24 Unknown History lisinopril 20 2 tab PO DAILY 07/18/24 07/18/24 Unknown History mg-hydrochlorothiazide 12.5 mg tablet metformin 1,000 mg tablet 1,000 mg PO BID 07/18/24 07/18/24 Unknown History metoprolol succinate 25 mg 25 mg PO DAILY 07/18/24 07/18/24 07/22/24 08:30 History tablet,extended release 24 hr pravastatin 40 mg tablet 40 mg PO DAILY 07/18/24 07/18/24 Unknown History pregabalin 150 mg capsule 150 mg PO BID 07/18/24 07/18/24 07/22/24 08:30 History sitagliptin phosphate 100 mg 100 mg PO DAILY 07/18/24 07/18/24 07/19/24 History tablet (Januvia) tirzepatide 2.5 mg/0.5 mL 2.5 mg subcut QWEEK 07/18/24 07/18/24 Unknown History subcutaneous pen injector (Mounjaro) Exam Height,Weight and Vital Signs: Height 5 ft 6 in Weight 124.556 kg Assessment and Plan Assessment Anesthesia Assessment: Chart Reviewed Documented by User: Lisa Nelson MD 07/22/24 12:51 [facility] Past Medical History Medical History Motion sickness Vertigo Esophageal varices Polyneuropathy Alcohol dependence in remission Hyperlipidemia Diabetes HTN (hypertension) Family History Family history of problems with anesthesia: No Surgical History Surgical History (Updated 07/18/24 @ 10:16 by Marisela Aranda RN) Surgical history unknown History of Problems with Anesthesia: No Social History Social History Patient Tobacco Use Status: Former Tobacco user Tobacco use type: Cigarette [employer] Healthcare Practices: none Advance Directives on File: No Meds Allergies Allergy/AdvReac Type Severity Reaction Status Date / Time cephalexin [From Keflex] AdvReac Rash Verified 07/22/24 12:32 Home Medications ?Medication ?Instructions ?Recorded ?Confirmed ?Last Taken ?Type amlodipine 10 mg tablet 10 mg PO DAILY 07/18/24 07/18/24 07/22/24 08:30 History glyburide 5 mg tablet 10 mg PO DAILY 07/18/24 07/18/24 Unknown History lisinopril 20 2 tab PO DAILY 07/18/24 07/18/24 Unknown History mg-hydrochlorothiazide 12.5 mg tablet metformin 1,000 mg tablet 1,000 mg PO BID 07/18/24 07/18/24 Unknown History metoprolol succinate 25 mg 25 mg PO DAILY 07/18/24 07/18/24 07/22/24 08:30 History tablet,extended release 24 hr pravastatin 40 mg tablet 40 mg PO DAILY 07/18/24 07/18/24 Unknown History pregabalin 150 mg capsule 150 mg PO BID 07/18/24 07/18/24 07/22/24 08:30 History sitagliptin phosphate 100 mg 100 mg PO DAILY 07/18/24 07/18/24 07/19/24 History tablet (Januvia) tirzepatide 2.5 mg/0.5 mL 2.5 mg subcut QWEEK 07/18/24 07/18/24 Unknown History subcutaneous pen injector (Carla) Exam Airway Mallampati Class: II TM Dist: >3cm Neck ROM: Full Denture: Upper and Lower Heart: rrr Lungs: cta Assessment and Plan Assessment Anesthesia Assessment: Anesthesia Plan Discussed Final Anesthetic Review Family History of Problems with Anesthesia: No History of Problems with Anesthesia: No NPO: Yes ASA Class: III Final Preanesthetic Review: No Changes in Pt Med Stat, Meds/Allgs Chart Reviewed and Consent Obtained/Reviewed Patient Risk: Intermediate Procedure Risk: Low Anesthetic Plan Anesthetic Plan: MAC: Disposition: Standard PACU
[2024-07-22] MEDS: Ketorolac Tromethamine 0.5% Op 5 ML DROPS 1 DROP EYE-LEFT ×3 (12:38→12:50)
[2024-07-22] MEDS: Tetracaine HCl/PF 0.5% Oph Sol 4 ML DROPS 1 DROP EYE-LEFT (12:38)
[2024-07-22] MEDS: Phenylephrine HCL 2.5% Oph SoL 2 ML BOTTLE 1 DROP EYE-LEFT ×3 (12:39→12:50)
[2024-07-22] MEDS: Cyclopentolate 1 % Ophth Sol 2 ML DRPBTL 1 DROP EYE-LEFT ×3 (12:39→12:51)
[2024-07-22] MEDS: Tropicamide 1 % Ophth Sol 3 ML BTL 1 DROP EYE-LEFT ×3 (12:39→12:50)
[2024-07-22] MEDS: Lactated Ringers 500 ML 50 ML IV (12:40)
[2024-07-22 12:43] LABS: Glucose, Whole Blood 206 mg/dL (60-115)
[2024-07-22 13:00] VITALS: BP 166/86; PULSE 68; RESP 18; TEMP 36.8; O2SAT 96
--- NOTE | 2024-07-22 14:49 | MHC.SHP ---
Pre-Procedural Eval Section A - 24 Hr Update-Section A only Date of Service: 07/22/24 The patient is an INPATIENT: No Changes since office visit: No Cold of Flu in the past 2 weeks, No New Medical Problems, No Changes in Medication and No Patient answered all questions The patient has been examined within 24 hours of the surgical procedure. The History & Physical has been completed within 30 days and I have reviewed it.: Yes Section B - Complete if H&P > 30 days Chief Complaint: Age-related nuclear cataract, left eye Allergies: Allergies Allergy/AdvReac Type Severity Reaction Status Date / Time cephalexin [From Keflex] AdvReac Rash Verified 07/22/24 12:32 Plan Diagnosis/Plan: Unchanged I have reviewed the history and physical and performed a pertinent physical examination on my patient. No changes have occurred unless specified. Time Spent With Patient Time: Total time managing care of this patient today ____ minutes.
--- NOTE | 2024-07-22 14:50 | HO.PNOPHT ---
Ophthalmology Procedure Procedure Date of Service: 07/22/24 Ophthalmology Viscoelastic: Healon Duet Dual Pack Pro Ophthalmology Lenses: IOL Acrysof MP - MA60AC (20) Procedure Notes: PREOPERATIVE DIAGNOSIS: Decreased visual acuity left eye secondary to cataract POSTOPERATIVE DIAGNOSIS: Same PROCEDURE: Left cataract extraction with intraocular lens insertion with vision blue SURGEON: Karthik Condon M.D. ANESTHESIA: Topical/MAC ESTIMATED BLOOD LOSS: None COMPLICATIONS: None After obtaining informed consent, the patient was brought to the operation room suite and placed in the supine position. After adequate sedation per anesthesia, topical drops of Tetracaine were given to the left eye. The eye was then prepped and draped in the usual sterile fashion. The operating room microscope was then positioned over the operative eye and a lid speculum placed. A paracentesis was created.Air was instilled into the anterior chamber followed by vison blue. Viscoelastic was then instilled into the anterior chamber. A three plane incision was then created temporally, utilizing a 2.85 mm keratome. Capsulotomy forceps were then utilized to create a circular tear capsulotomy. Hydrodissection and hydrodelineation were carried out until adequate mobilization of the nucleus occurred. Phacoemulsification was then utilized to remove the dense central nucleus followed by removal of the cortical material utilizing the automated aspiration irrigation unit. Viscoat elastic was instilled into the posterior capsular bag followed by placement of a posterior chamber intraocular lens without difficulty. The residual Viscoat elastic was then removed utilizing the automated IA machine. The wound was check and found to be watertight. The patient tolerated the procedure well and the lid speculum was removed. Intracameral injection of Vigamox 0.1 mL followed by a subtenon injection of Kenalog-40 0.2 mL were administered. The patient will be seen in the a.m.
[2024-07-22 15:13] VITALS: BP 140/83; PULSE 62; RESP 18; TEMP 37.2; O2SAT 99
[2024-07-22 15:28] VITALS: BP 136/79; PULSE 65; RESP 18; TEMP 37.2; O2SAT 98
== END 2024-07-22 15:29 | disposition home or self-care (01) ==
PROVIDERS: PCP Internal Medicine; Visit Provider Ophthalmology
PROC: (CPT 66985; principal; 2024-07-22 14:00)
DX: H25.12 Age-related nuclear cataract, left eye (principal); H52.4 Presbyopia; H18.413 Arcus senilis, bilateral; I10 Essential (primary) hypertension; E78.5 Hyperlipidemia, unspecified; E11.42 Type 2 diabetes mellitus with diabetic polyneuropathy; F10.21 Alcohol dependence, in remission; I85.00 Esophageal varices without bleeding; R42 Dizziness and giddiness; Z79.84 Long term (current) use of oral hypoglycemic drugs; Z79.85 Long-term (current) use of injectable non-insulin antidiabetic drugs; Z79.899 Other long term (current) drug therapy; Z87.891 Personal history of nicotine dependence; Z88.1 Allergy status to other antibiotic agents
CPT/HCPCS: 66984; 82947; J2250; J3301; V2630

== ENCOUNTER 2024-09-09 07:02 | Day surgery (SDC) | payer OTHER, SELFPAY ==
[2024-07-18 10:31] VITALS: BMI 44.3
--- NOTE | 2024-09-05 11:01 | P.CONAN_ITS ---
HPI - Anesthesia Eval Consult details Narrative: 59yo M for Right Cataract Extraction IOL Insertion Left eye 07/22/24: Midaz 2 ETOH dependance with varices. Per clearance note: JVP < 6, Kussmaul's sign absent Anesthesia Pre-Procedure Meds Is the patient on any of the following meds?: GLP1/DPP4 PMFSH Past Medical History Medical History Motion sickness Vertigo Esophageal varices Polyneuropathy Alcohol dependence in remission Hyperlipidemia Diabetes HTN (hypertension) Family History Family history of problems with anesthesia: No Surgical History Surgical History (Updated 07/18/24 @ 10:16 by Marisela Aranda RN) Surgical history unknown History of Problems with Anesthesia: No Social History Social History Patient Tobacco Use Status: Former Tobacco user Tobacco use type: Cigarette 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 Healthcare Practices: none Advance Directives on File: No Meds Allergies Allergy/AdvReac Type Severity Reaction Status Date / Time cephalexin [From Keflex] AdvReac Rash Verified 07/22/24 12:32 Home Medications ?Medication ?Instructions ?Recorded ?Confirmed ?Last Taken ?Type amlodipine 10 mg tablet 10 mg PO DAILY 07/18/24 07/18/24 07/22/24 08:30 History glyburide 5 mg tablet 10 mg PO DAILY 07/18/24 07/18/24 Unknown History lisinopril 20 2 tab PO DAILY 07/18/24 07/18/24 Unknown History mg-hydrochlorothiazide 12.5 mg tablet metformin 1,000 mg tablet 1,000 mg PO BID 07/18/24 07/18/24 Unknown History metoprolol succinate 25 mg 25 mg PO DAILY 07/18/24 07/18/24 07/22/24 08:30 History tablet,extended release 24 hr pravastatin 40 mg tablet 40 mg PO DAILY 07/18/24 07/18/24 Unknown History pregabalin 150 mg capsule 150 mg PO BID 07/18/24 07/18/24 07/22/24 08:30 History sitagliptin phosphate 100 mg 100 mg PO DAILY 07/18/24 07/18/24 07/19/24 History tablet (Januvia) tirzepatide 2.5 mg/0.5 mL 2.5 mg subcut QWEEK 07/18/24 07/18/24 Unknown History subcutaneous pen injector (Carla) Exam Height,Weight and Vital Signs: Height 5 ft 6 in Weight 124.556 kg Assessment and Plan Assessment Anesthesia Assessment: Chart Reviewed Final Anesthetic Review Family History of Problems with Anesthesia: No History of Problems with Anesthesia: No
[2024-09-09] MEDS: Tetracaine HCl/PF 0.5% Oph Sol 4 ML DROPS 1 DROP EYE-RIGHT (07:19)
[2024-09-09] MEDS: Lactated Ringers 500 ML 50 ML IV (07:19)
[2024-09-09] MEDS: Tropicamide 1 % Ophth Sol 3 ML BTL 1 DROP EYE-RIGHT ×3 (07:20→07:26)
[2024-09-09] MEDS: Ketorolac Tromethamine 0.5% Op 5 ML DROPS 1 DROP EYE-RIGHT ×3 (07:20→07:26)
[2024-09-09] MEDS: Phenylephrine HCL 2.5% Oph SoL 2 ML BOTTLE 1 DROP EYE-RIGHT ×3 (07:20→07:26)
[2024-09-09] MEDS: Cyclopentolate 1 % Ophth Sol 2 ML DRPBTL 1 DROP EYE-RIGHT ×3 (07:20→07:26)
[2024-09-09 07:29] LABS: Glucose, Whole Blood 105 mg/dL (60-115)
[2024-09-09 07:34] VITALS: BP 144/75; PULSE 67; RESP 18; TEMP 36.7; O2SAT 96
--- NOTE | 2024-09-09 08:51 | P.PCNO_ITS ---
Ophthalmology Procedure Procedure Date of Service: 09/09/24 Ophthalmology Viscoelastic: Healon Duet Dual Pack Pro Ophthalmology Lenses: IOL Acrysof MP - [id number] (19.5) Procedure Notes: PREOPERATIVE DIAGNOSIS: Decreased visual acuity right eye secondary to cataract POSTOPERATIVE DIAGNOSIS: Same PROCEDURE: Right cataract extraction with intraocular lens insertion SURGEON: Karthik Condon M.D. ANESTHESIA: Topical/MAC ESTIMATED BLOOD LOSS: None COMPLICATIONS: None After obtaining informed consent, the patient was brought to the operating room suite and placed in the supine position. After adequate sedation per anesthesia, topical drops of Tetracaine were given to the right eye. The eye was then prepped and draped in the usual sterile fashion. The operating room microscope was then positioned over the operative eye and a lid speculum placed. A paracentesis was created. Viscoelastic was then instilled into the anterior chamber. A three plane incision was then created temporally, utilizing a 2.85 mm keratome. Capsulotomy forceps were then utilized to create a circular tear capsulotomy. Hydrodissection and hydrodelineation were carried out until adequate mobilization of the nucleus occurred. Phacoemulsification was then utilized to remove the dense central nu cleus followed by removal of the cortical material utilizing the automated aspiration irrigation unit. Viscoelastic was instilled into the posterior capsular bag followed by placement of a posterior chamber intraocular lens without difficulty. The residual Viscoelastic was then removed utilizing the automated IA machine. The wound was checked and found to be watertight. The patient tolerated the procedure well and the lid speculum was removed. Intracameral injection of Vigamox 0.1 mL followed by a subtenon injection of Kenalog-40 0.2 mL were administered. The patient will be seen in the a.m.
--- NOTE | 2024-09-09 08:51 | MHC.SHP ---
Pre-Procedural Eval Section A - 24 Hr Update-Section A only Date of Service: 09/09/24 The patient is an INPATIENT: No Changes since office visit: No Cold of Flu in the past 2 weeks, No New Medical Problems, No Changes in Medication and No Patient answered all questions The patient has been examined within 24 hours of the surgical procedure. The History & Physical has been completed within 30 days and I have reviewed it.: Yes Section B - Complete if H&P > 30 days Chief Complaint: Age-related nuclear cataract, right eye Allergies: Allergies Allergy/AdvReac Type Severity Reaction Status Date / Time cephalexin [From Keflex] AdvReac Rash Verified 09/09/24 07:36 Plan Diagnosis/Plan: Unchanged I have reviewed the history and physical and performed a pertinent physical examination on my patient. No changes have occurred unless specified. Time Spent With Patient Time: Total time managing care of this patient today ____ minutes.
--- NOTE | 2024-09-09 09:05 | P.CONAN_ITS ---
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 Healthcare Practices: none Advance Directives on File: No Meds Allergies Allergy/AdvReac Type Severity Reaction Status Date / Time cephalexin [From Keflex] AdvReac Rash Verified 09/09/24 07:36 Active Medications: Current Medications Lactated Ringer's (Lr) 500 mls @ 50 mls/hr IV .Q10H LORENA Stop: 09/09/24 17:14 Last Admin: 09/09/24 07:19 Dose: 50 mls/hr Povidone Iodine (Povidone Iodine 5 % Ophth Soln 30 Ml Bottle) 1 appl EYE-RIGHT PREOP PRN PRN Reason: Pre-Op Surgical Implant Prophy Home Medications ?Medication ?Instructions ?Recorded ?Confirmed ?Last Taken ?Type amlodipine 10 mg tablet 10 mg PO DAILY 07/18/24 07/18/24 07/22/24 08:30 History glyburide 5 mg tablet 10 mg PO DAILY 07/18/24 07/18/24 Unknown History lisinopril 20 2 tab PO DAILY 07/18/24 07/18/24 Unknown History mg-hydrochlorothiazide 12.5 mg tablet metformin 1,000 mg tablet 1,000 mg PO BID 07/18/24 07/18/24 Unknown History metoprolol succinate 25 mg 25 mg PO DAILY 07/18/24 07/18/24 07/22/24 08:30 History tablet,extended release 24 hr pravastatin 40 mg tablet 40 mg PO DAILY 07/18/24 07/18/24 Unknown History pregabalin 150 mg capsule 150 mg PO BID 07/18/24 07/18/24 07/22/24 08:30 History sitagliptin phosphate 100 mg 100 mg PO DAILY 07/18/24 07/18/24 09/06/24 History tablet (Januvia) tirzepatide 2.5 mg/0.5 mL 2.5 mg subcut QWEEK 07/18/24 07/18/24 08/31/24 History subcutaneous pen injector (Carla) Exam Height,Weight and Vital Signs: Height 5 ft 6 in Weight 124.556 kg Last Vital Signs Temp 98.1 F 09/09/24 07:34 Pulse 67 09/09/24 07:34 Resp 18 09/09/24 07:34 BP 144/75 H 09/09/24 07:34 Pulse Ox 96 09/09/24 07:34 O2 Del Method Room Air 09/09/24 07:34 Pertinent Lab Results Pertinent Lab Results: Laboratory Tests 09/09/24 07:25 POC Glucose 105 Airway Mallampati Class: III TM Dist: >3cm Neck ROM: Full Heart: RRR Lungs: CTA Assessment and Plan Assessment Anesthesia Assessment: Anesthesia Plan Discussed and Chart Reviewed Final Anesthetic Review Family History of Problems with Anesthesia: No History of Problems with Anesthesia: No NPO: Yes ASA Class: III Final Preanesthetic Review: Meds/Allgs Chart Reviewed, Consent Obtained/Reviewed and Anes Risks/Benef Reviewed Patient Risk: Low Procedure Risk: Low Anesthetic Plan Anesthetic Plan: MAC: Disposition: Standard PACU
[2024-09-09 09:18] VITALS: BP 147/80; PULSE 64; RESP 18; TEMP 36.1
--- NOTE | 2024-09-09 09:32 | HO.POSTANES ---
Post Anesthesia Evaluation Post Anesthesia Evaluation Date of Service: 09/09/24 Vital Signs: Vital Signs Temp Pulse Resp BP Pulse Ox O2 Del Method 09/09/24 09:18 97 F 64 18 147/80 H 09/09/24 07:34 98.1 F 67 18 144/75 H 96 Room Air Anesthesia: Monitored Mental Status: Awake Pain Control: Satisfactory Nausea/Vomiting: None Hydration: Adequate Anesthesia-Related Issues: No Anes. Related Issues
== END 2024-09-09 09:21 | disposition home or self-care (01) ==
PROVIDERS: PCP Internal Medicine; Visit Provider Ophthalmology
PROC: (CPT 66985; principal; 2024-09-09 09:00)
DX: H25.11 Age-related nuclear cataract, right eye (principal); H52.4 Presbyopia; H18.413 Arcus senilis, bilateral; I10 Essential (primary) hypertension; E78.5 Hyperlipidemia, unspecified; E11.42 Type 2 diabetes mellitus with diabetic polyneuropathy; F10.21 Alcohol dependence, in remission; Z79.84 Long term (current) use of oral hypoglycemic drugs; Z79.85 Long-term (current) use of injectable non-insulin antidiabetic drugs; Z79.899 Other long term (current) drug therapy; Z87.891 Personal history of nicotine dependence
CPT/HCPCS: 66984; 82947; J2250; J3010; J3301; V2630

== ENCOUNTER 2025-03-12 14:10 | Outpatient (REF) | payer OTHER, SELFPAY ==
--- OUTSIDE RECORDS SUMMARY | 2025-03-12 17:21 | XMS_ITS | Data Portability ---
Author Organization [facility], Telehealth Patient Home Address [address] [place] [address] Assessment Encounter Date Assessment Date Assessment LastModified by Organization Details LastModified Time 12/27/2022 12/27/2022 [id number] [place] [id number] ([employer]) [facility] MODERATE MUST MEET 2 OUT OF 3 [...] COVERED Not available 12/27/2022 16:56:16 05/15/2023 05/15/2023 [id number] [place] [id number] ([employer]) [facility] MODERATE MUST MEET 2 OUT OF 3 [...] THAT IS COVERED Not available 05/15/2023 14:33:55 02/07/2025 02/07/2025 [id number] [place] [id number] ([employer]N) [facility] MODERATE MUST MEET 2 OUT OF [...] EACH ELEMENT THAT IS COVERED Not available 02/07/2025 12:10:05 Plan of Treatment Reminders Order Date Submit Date Provider Last Modified By Organization Details Last Modified Time Details Appointments FOLLOW UP 15 2025 11:00A M DR BULLOCK Not available Not available Not available Lab hemoglobi n A1c, QN, blood 2024 025 [facility], [address] [place] [address], [id number], 02/07/2025 12:11:55 CMP, serum or plasma 2024 025 [facility], [address] [place] [address], [id number], 02/07/2025 12:11:55 HbA1c (hemoglob in A1c), blood 2023 024 [facility], [address] [place] [address], [id number], 05/15/2023 14:36:36 CBC 2023 024 [facility], [address] [place] [address], [id number], 05/15/2023 14:36:36 PSA, serum or plasma 2023 024 [facility], [address] [place], [address], 05/23/2023 10:14:38 Referral None recorded. Procedures None recorded. Surgeries None recorded. Imaging None recorded. Medication Orders Mounjaro 5 mg/0.5 mL subcutane ous pen injector 2024 025 [facility] [id number], [address] [place], [id number], 02/07/2025 12:10:18 Mounjaro 2.5 mg/0.5 mL subcutane ous pen injector 2024 025 [facility] [id number], [address] [place], [address], 07/10/2024 15:54:18 pregabali n 150 mg capsule 2022 023 [id number] [address] [place], [address], 12/27/2022 16:58:00 Patient TargetsNo targets recorded. Patient Instructions Encounter Date Encounter Id Patient Instructions Last Modified By Organization Details Last Modified Time 12/27/2022 [id number] body mass index: care instructions Not available 12/27/2022 16:57:56 learning about healthy weight Not available 12/27/2022 16:57:56 high cholesterol : care instructions Not available 12/27/2022 16:57:56 07/10/2024 [id number] learning about type 2 diabetes Not available 07/10/2024 15:54:05 type 2 diabetes: care instructions Not available 07/10/2024 15:54:05 Reason for Referral None Reported. Results Created Date Observation Date Name Description Value Unit Range Abnormal Flag Note LastModifiedBy Organization Detail LastModifiedTime Result Notes None recorded. Problems Name Problem SNOMED Code Status Onset Date Resolution Date Notes Provider Name and Address Organization Details Recorded Time Type 2 diabetes mellitus 27071755 Active 2017 Valentín Bullock, DO [address] [place], [address], [facility] 5 12:08:39 Essential hypertensi on 70601619 Active 2017 Rosi leach [facility] 5 08:47:33 Esophageal varices 05404029 Active 2017 Rosijayashree leach [facility] 5 08:47:33 Hyperlipid emia 43185310 [facility] 08:47:33 Alcoholism 9448286 Active 2017 sober since 2013 Rosi leach [facility] 5 08:47:33 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 30138317 Active 2018 Rosi leach [facility] 5 08:47:33 Edema of lower extremity 803993956 Active 2018 Rosi leach [facility] 5 08:47:33 Vertigo 179698823 [facility] 08[facility]47:33 Constipati on 97846590 Active 2022 Rosi leach [facility] 5 08:47:43 Motion sickness 89891985 Active 2022 Rosi leach [facility] 5 08:47:33 Notes:Some problems listed i n Documents: #[id number], #[id number] could not be added to this patient's [...] n Not available Not available Not available 10/18/2017 7 RxNorm Alicia leach [facility] 8 08:02:32 [id number] SARS-CoV- 2 (COVID-19 ) vaccine, mRNA-BNT1 62b2 medicatio n rash severe Not available 10/27/2020 [id number] 30 RxNorm SINGH MULLEN [address] [place], [address], [facility] 14:39:40 Medications Name Sig [...] tablet TAKE 2 TABLETS BY MOUTH DAILY 2024 active Not Available Not Available Not Avai lable glyburide 5 mg tablet TAKE 2 TABLETS BY MOUTH DAILY 2024 active Not Available Not Available Not Avai lable pravastatin 40 mg tablet TAKE 1 TABLET BY MOUTH DAILY 2024 active Not Available Not Available Not Avai lable ondansetron HCl 8 mg tablet TAKE 1 TABLET BY MOUTH TWICE A DAY NEEDED FOR 14 DAYS 07/10 completed Not Available Not Available Not Available atovaquone 250 mg-proguani l 100 mg [...] tablet TAKE 1 TABLET BY MOUTH DAILY 2024 active Not Available Not Available Not Avai lable metformin 1,000 mg tablet TAKE 1 TABLET BY MOUTH TWICE DAILY 2024 active Not Available Not Available Not Avai lable lisinopril 30 mg tablet 01/17 completed Not Available Not Available Not Available pravastatin 20 mg tablet TAKE 1 TABLET BY MOUTH EVERY DAY 02/12 completed Not Available Not Available Not Available metoprolol succinate ER 25 mg tablet,exte nded release 24 hr TAKE 1 TABLET BY MOUTH ONCE DAILY 2024 active Not Available Not Available Not Avai lable Viagra 100 mg tablet Take 1 tablet as needed by oral route. 07/10 completed Not Available Not Available Not Available scopolamine 1 mg over 3 days transdermal patch APPLY 1 PATCH EVERY 72 HOURS BY TRANSDERM AL ROUTE FOR 14 DAYS. 07/10 completed Not Available Not Available Not Available lisinopril 40 mg tablet Take 1 [...] 1 CAPSULE BY MOUTH TWICE A DAY FOR 30 DAYS 2024 active Not Available Not Available Not Avai lable amlodipine Take one tablet once a day 01/17 completed Not Available Not Available Not Available Januvia 100 mg tablet TAKE 1 TABLET BY MOUTH DAILY 2024 active Not Available Not Available Not Avai [...] Available Not Available Not Available Afluria Qd 2019- (36 mos up)(PF)60 mcg (15 mcg x4)/0.5 mL IM syringe 10/13 completed Not Available Not Available Not Available Mounjaro 5 mg/0.5 mL subcutaneou s pen injector INJECT 1 PEN SUBCUTANE OUSLY ONCE A WEEK FOR 4 WEEKS 2024 active Not Available Not Available Not Darnell hilario Mounjaro 2.5 mg/0.5 mL subcutaneou s pen injector INJECT 0.5 ML SUBCUTANE OUSLY WEEKLY active Not Available Not Available No t Available Vitals Date Recorded Body height Body mass index (BMI) Body weight Heart rate Oxygen saturation Oxygen saturation in Arterial blood by Pulse oximetry Systolic And Diastolic Provider Name and Address Organization Details Last Updated DateTime 5 167.64 cm 44.3 kg/m2 245331. 46 g 76 /min 96 % 96 % 148/88 mm[Hg] Rosi Mobley [facility] 5 15:41:03 Date Recorded Body height Body mass index (BMI) Body weight Heart rate Oxygen saturation Oxygen saturation in Arterial blood by Pulse oximetry Systolic And Diastolic Provider Name and Address Organization Details Last Updated DateTime 5 167.64 cm 42.4 kg/m2 475565. 72 g 82 /min 97 % 97 % 124/80 mm[Hg] Rosi Mobley [facility] 5 10:57:32 Date Recorded Body height Body mass index (BMI) Body weight Heart rate Oxygen saturation Oxygen saturation in Arterial blood by Pulse oximetry Systolic And Diastolic Provider Name and Address Organization Details Last Updated DateTime 3 167.64 cm 40.2 kg/m2 001496. 5 g 87 /min 96 % 96 % 132/70 mm[Hg] Addie Ocasio [facility] 3 16:36:04 Date Recorded Body height Body mass index (BMI) Body weight Oxygen saturation Oxygen saturation in Arterial blood by Pulse oximetry Heart rate Systolic And Diastolic Provider Name and Address Organization Details Last Updated DateTime 5 167.64 cm 43.1 kg/m2 664265. 16 g 100 % 100 % 68 /min 138/76 mm[Hg] Katherine Doshi [facility] 5 11:36:55 Social History Question Answer Notes LastModified by Organizat ion Details LastModified Time Tobacco Smoking Status Former Smoker Not Available [facility] 03/10/2020 03:36:24 What Was The Date Of Your Most Recent Tobacco Screening? 02/07/2025 [email or web address] Information not available 02/07/2025 How Many Years Have You Smoked Tobacco? 18 [id number] Information not available 03/10/2020 Sex: Unknown Functional Status Question Answer Note LastModified by Organization D etails LastModified Time Do you or have you ever used any other forms of tobacco or nicotine? No [email or web address] Information not available 09/24/2021 Mental Status None recorded. Family History Nothing Reported. Medical History No medical history recorded. Immunizations Vaccine Type Date Status Note Provider Nam e and Address Organization Details Recorded Time zoster, unspecified formulation 4 completed Valentín Bullock DO [address] [place] [address], [phone] 06/22/2023 08:32:05 influenza, unspecified formulation [facility]25 09:56:49 Hep A, adult 9 completed Not Available [facility] 06/09/2023 05:19:34 Tdap 9 completed Not Available [facility] 06/09/2023 05:19:34 Influenza, split virus, quadrivalent, preservative 9 completed Not Available [facility] 06/09/2023 05:19:34 Influenza, split virus, quadrivalent, preservative 0 completed Not Available [facility] 06/09/2023 05:19:34 COVID-19, mRNA, LNP-S, PF, 30 mcg/0.3 mL dose 1 completed Not Available [facility] 06/09/2023 05:19:34 COVID-19, mRNA, LNP-S, PF, 30 mcg/0.3 mL dose 1 completed Not Available [facility] 06/09/2023 05:19:34 Past Encounters Encounter ID Performer Location Encounter Start Date Encounter Closed Date Diagnosis/Indication Diagnosis SNOMED-CT Code Diagnosis ICD10 Code Diagnosis IMO Codes Diagnosis Note [id number] Valentín Bullock DO [facility] [address] [facility] [address] 10/18/2017 13:37:06 10/18/2017 14:38:06 Type 2 diabetes mellitus 94469605 E11.65 has improved will continue to work on diet and exercise encourage weight loss counsellin g on diet 10-15 minutes Hyperlipidemia 75928809 E78.2 will continue to work on diet and exercise encourage weight loss Essential hypertension 54748908 I10 not well controlled will increase lisinopril from 30 mg to 40 mg Neuropathy due to diabetes mellitus 661330885 E11.40 left great toe tingling chronicall y x years declines gabapentin at this time careful foot care improve diabetes control counsellin g on foot protection /preventio n of diabetic ulcers approx 5 minutes [id number] Valentín Bullock [facility] [address] [facility] [facility] [place] [address] 01/17/2018 13:54:51 01/17/2018 14:30:56 Type 2 diabetes mellitus 50356625 E11.65 stable, still not quite at goal at 7.9 diet needs improvemen t Hyperlipidemia 20737052 E78.2 well controlled on pravastati n Essential hypertension 72316197 I10 not well controlled increase cardio exercise Neuropathy due to diabetes mellitus 401543841 E11.40 left great toe tingling chronicall y x years declines gabapentin at this time careful foot care improve diabetes control counsellin g on foot protection /preventio n of diabetic ulcers approx 5 minutes [id number] Valentín Bullock [facility] [address] [facility] [facility] [place] [address] 04/18/2018 13:29:01 04/18/2018 15:43:59 Type 2 diabetes mellitus 42551714 E11.65 not well controlled had tried trulicity in the past, but didn't really seem to help will try glyburide encouraged better diet and exercise regimen make sure to check bs ever morning Hyperlipidemia 35479116 E78.2 well controlled on pravastati n Essential hypertension 39945878 I10 stable increase cardio exercise Neuropathy due to diabetes mellitus 236681048 E11.40 left great toe tingling chronicall y x years declines gabapentin at this time careful foot care improve diabetes control counsellin g on foot protection /preventio n of diabetic ulcers approx 5 minutes [id number] Marie Jacobo, AARON, S [facility] [address] [facility] [place] [address] 07/25/2018 14:21:49 07/25/2018 16:17:43 Type 2 diabetes mellitus 65838278 E11.9 much improved, cont. glyburide and walking Hyperlipidemia 36447978 E78.2 ldl 95 Essential hypertension 88009040 I10 stable Alcoholism 3552862 F10.2 0 sober X 5 years w/AA [id number] Valentín Bullock [facility] [address] [facility] [place] [address] 11/13/2018 13:49:24 11/13/2018 14:35:44 Type 2 diabetes mellitus 47110990 E11.65 improved with glyburide as of july, will recheck today Hyperlipidemia 67830319 E78.2 ldl close to goal with pravastati n work on diet to work towards goal diet counsellin g Essential hypertension 83932484 I10 somewhat elevated, seems to correlate with increase in weight wants to work on weight reduction diet counsellin g Neuropathy due to diabetes mellitus 207578078 E11.40 left great toe tingling chronicall y x years - no change declines gabapentin at this time careful foot care improve diabetes control [id number] Valentín Bullock, [facility] [address] [facility] [place] [address] 02/12/2019 14:09:53 02/12/2019 15:28:17 Type 2 diabetes mellitus 18346195 E11.65 a1c 6.5 - well controlled will get dm eye exam where his goes nephropath y screening 02/11/19 - normal Hyperlipidemia 00307933 E78.2 LDL close but has not improved in past year will increase pravastati n work on diet to work towards goal diet counsellin g Essential hypertension 37363035 I10 will start metoprolol discussed possible adr/ddi will monitor these possibilit ies closely Neuropathy due to diabetes mellitus 758917874 E11.40 left great toe tingling chronicall y x years - no change declines gabapentin at this time careful foot care improve diabetes control Edema of l ower extremity 317381124 R60.0 compressio n stockings for travel keep moving while on flights Body mass index 40+ - severely obese 684331412 Z68.41 stressed importance of weight loss Screening for malignant neoplasm of colon 196858886 Z12.11 [id number] Valentín Bullock [facility] [address] [facility],[place] [address] 01/03/2020 14:29:28 01/03/2020 15:30:38 Type 2 diabetes mellitus 76660540 E11.9 doing amazing a1c is 6.2 Essential hypertension 11098783 I10 ok no cp no cardiac sx 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 77036736 E11.42 seems about stable Edema of l ower extremity 267394033 R60.0 has noted fungal infect of feet tinea pedis will use an antifungal spray powder Active or passive immunization 503136239 Z23 [id number] Valentín Bullock [facility] [address] [facility],[place] [address] 10/13/2020 13:55:24 10/13/2020 14:17:53 Cellulitis of right lower limb 6575178636 4055644 L03.115 will set up with longer course of bactrim and fu in a week or two before patient leaves on vacation if needed will do a rocephin injection 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 44012346 E11.42 stable Body mass index 40+ - severely obese 528428383 Z68.41 discussed diet and exercise Alcoholism 4293599 F10.2 1 stable [id number] Valentín Bullock [facility] [address] [facility],[place] [address] 10/27/2020 14:24:07 10/27/2020 15:01:50 Cellulitis 928803831 L03.90 will fu with pred taperlooks more like a rash from reaction to the COVID vaccine todayhas spread up his leg to his stomach to his left arm will start on predtold patient to be very careful with his sugar given he is a Type 2 diabeticgo [place] plane [id number] Valentín Bullock [facility] [address] [facility],[place] [address] 09/24/2021 14:04:03 09/24/2021 15:03:08 Type 2 diabetes mellitus 70864590 E11.9 doing amazing a1c is 6.2 Essential hypertension 74079453 I10 ok no cp no cardiac sx 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 was down to 6.2 [id number] Valentín Bullock [facility] [address] [facility] [address] 12/27/2022 16:24:46 12/28/2022 08:49:33 Essential hypertension 67083624 I10 ok no cp no cardiac sx Hyperlipidemia 38857532 E78.2 LDL 83 !!!! 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 49558697 E11.42 seems to have gotten much better with lowered glucosedoi ng much better with the lyrica we will increase to 150mg bid Body mass index 40+ - severely obese 336970388 Z68.41 [id number] Valentín Bullock [facility] [address] [facility] [address] 05/15/2023 08:25:48 05/16/2023 08:06:20 Type 2 diabetes mellitus 66586709 E11.42 pt is doing amazing a1c at 5.8 and is feeling okmeds working goodif next lab shows same will beging tapering off meds Essential hypertension 82134071 I10 ok no cp no cardiac sx Hyperlipidemia 86401380 E78.2 LDL 53 !!!! Body mass index 40+ - severely obese 945614637 Z68.41 much better [id number] Valentín Bullock [facility] [address] [facility] [place] [address] 07/10/2024 14:56:53 07/10/2024 16:10:44 Pre-surgery evaluation 250342877 Z01.818 Per the ACC cardiac risk stratifica tion (revised) this patient is cleared for the proposed cataract surgery . Type 2 ruthie betes mellitus 30974314 E11.9 a1c is up to 7.7 has gained more wgt will try to get him glp1 [id number] Valentín Bullock [facility] [address] [facility] [place] [address] 09/03/2024 10:30:19 09/03/2024 12:07:57 Pre-surgery evaluation 063860964 Z01.818 The patient was seen in the office today for pre-op evaluation . All medical conditions on patient's problem list were addressed and are currently stable, no interventi on needed at this time. Based on history and physical performed, the patient is cleared for surgery. Essential hypertension 93899221 I10 BP is excellent Type 2 ruthie betes mellitus 41417929 E11.9 controlled by medication [id number] Valentín Bullock [facility] [address] [facility], [place] [address] 02/07/2025 11:22:54 02/07/2025 12:21:55 Depression screening 916976043 Z13.31 neg Essential hypertension 26863210 I10 ok no cp no cardiac sx Hyperlipidemia 59231137 E78.2 LDL 53 !!!! Type 2 ruthie betes mellitus 75190320 E11.9 he is slowly losing wgt and feeling better but not always compliant with dietwill increase mounjaro [id number] is not being doneevery 3 months Health Concerns Section Related Observation LastModified by Organization Nikia vega LastModified Time None Recorded Concern Status LastModified by Organization Details LastModified Time None Recorded Advance Directives Directive None Recorded Payers Insurance Date Sequence Insurance Name Policy Number Policy Morton Covered Member ID Morton Member ID Guarantor Name 02/05/[address] [place] [address] [id number] Rusty Zimmer [id number] Rusty Zimmer Notes Date Note Type Note Provider Name and Address Organization Details Recorded Time 05/15/19 24 text/htm l ROS as noted in the HPI patient is evaluated via tele/video assessment per patient consentduring current pandemic doing ok has a URI right now but otherwise has been feelingno major issues a1c is now 5.8 was 9.7 has not checked his bp Valentín Bullock DO [address] [place] [address], [address], [facility] 05/15/2023 14:36:17 07/11/19 25 text/htm l Pre-OpReported by PatientHPIFor risk factors, patient reportsno cognitive impairment,no functional impairment,no malnutrition,no frailty,able to climb a flight of stairs (exercise capacity>4 mets),no obstructive sleep apnea,non-smoker,no alcohol misuse,no illicit drug use,no chronic cardiopulmonary condition, andnot obese. For anesthesia hx, patient reportsno hx of anesthesia complications,no allergy to anesthetic agents, andno family history of anesthesia complications. For functional ability, patient reportsable to walk up stairs,able to perform heavy work around the house,no difficulty walking up hills, andable to walk 4 mph.ROS as noted in the HPI here for pre op Valentín Bullock DO [address] [place], [address], [facility] 07/10/2024 15:56:51 09/04/19 25 text/htm l Pre-OpReported by PatientHPIFor risk factors, patient reportschronic cardiopulmonary condition (htn, hld, stable with medications)but reportsno cognitive impairment,no functional impairment,no malnutrition,no frailty,able to climb a flight of stairs (exercise capacity>4 mets),no obstructive sleep apnea,non-smoker,no alcohol misuse,no illicit drug use,no chronic cardiopulmonary condition, andnot obese. For anesthesia hx, patient reportsno hx of anesthesia complications,no allergy to anesthetic agents,no family history of anesthesia complications, andno history with anesthesia. For functional ability, patient reportsable to walk up stairs,able to perform heavy work around the house,no difficulty walking up hills, andable to walk 4 mph. For post-op support, patient reportsadequate assistance at home (). For surgery to be performed, (right eye cataract with dr. horton).ROS as noted in the HPI SINGH MULLEN [address] [place], [address], [facility] 09/03/2024 11:20:15 02/08/20 25 text/htm l Care Management - HypertensionReported by PatientHPIFor self care, patient reportsnot under emotional stress. For severity, patient reportssymptoms are improvinganddoes not interfere with daily activities. For associated symptoms, patient reportsno dizziness,no lightheadedness,no chest pain,no shortness of breath,no palpitations,no edema,no calf muscle cramps,no blurred vision,no confusion,no headaches, andno fatigue. Care Management - DiabetesReported by PatientHPIFor self care, patient reportsseeing eye doctor yearly for dilated eye exam,checking feet regularly,normal range of home blood sugars (in the low 100s), andno side effects from medications. For associated symptoms, patient reportssymptoms are usually well controlled,no fatigue,no dizziness,no excessive sweating,no headaches,no confusion,no increased thirst,no increased appetite,no increased urination,no blurred vision,no numbness of feet, andno calluses on feet. Care Management - HyperlipidemiaReported by PatientIFor control, patient reportsusually well controlled,improving, andat goal. For complications, patient reportsno coronary artery disease,no heart attack,no cardiovascular disease,no pancreatitis, andno stroke.ROS as noted in the HPI Valentín Bullock DO [address] [place], [id number], [facility] 02/07/2025 12:12:38
[2025-03-12 18:31] LABS: Hemoglobin A1C 132.8340 umol/L; Total Hemoglobin (HGBA1C) 3852.7107 umol/L
[2025-03-12 18:36] LABS: Alanine Aminotransferase 41 U/L (0-40); Albumin Level 4.5 g/dL (3.5-5.0); Alkaline Phosphatase 40 U/L (39-117); Anion Gap 12 (12-20); Aspartate Amino Transferase 29 U/L (5-37); Blood Urea Nitrogen 16 mg/dL (9-16); Calcium 9.0 mg/dL (8.4-10.2); Carbon Dioxide 31 mmol/L (22-29); Chloride 100 mmol/L (96-108); Estimated Glomerular Filt Rate > 60; Potassium 4.2 mmol/L (3.3-5.1); Sodium 139 mmol/L (135-145); Total Protein 8.2 g/dL (6.5-8.0)
== END 2025-03-12 14:11 | disposition home or self-care (01) ==
LOC: HO.MANLDS 14:10
PROVIDERS: Visit Provider Internal Medicine
DX: E11.9 Type 2 diabetes mellitus without complications (principal)
CPT/HCPCS: 36415; 80053; 83036